=== PATIENT | female | born 1950 | race Caucasian/White ===

== ENCOUNTER 2022-01-06 17:19 | Inpatient (IN) | payer MEDICARE, OTHER ==
[2022-01-06 18:14] LABS: #Monocytes 0.7 10x3/uL (0.0-1.1); #Neutrophils 6.6 10x3/uL (1.5-8.4); %Basophils 0.3 % (0.0-2.0); %Lymphocytes 18.4 % (18.0-47.0); %Monocytes 7.2 % (0.0-10.0); %Neutrophils 73.8 % (40.0-75.0); Hemoglobin 12.2 g/dL (12.0-15.5); Mean Corpuscular HGB CONC 35.1 g/dL (32.0-36.0); Mean Corpuscular Hemoglobin 29.8 pg (27.0-33.0); Mean Corpuscular Volume 84.9 fl (81.6-98.3); Mean Platelet Volume 9.3 fl (7.4-10.4); Platelet Count 302 10x3/uL (150-450); RBC Distribution Width 12.2 % (11.5-14.5)
[2022-01-06 18:20] LABS: ALT (SGPT) 7 U/L (8-55); AST (SGOT) 14 U/L (5-34); Albumin 4.1 g/dL (3.4-4.8); Alkaline Phosphatase 85 U/L (40-110); Anion Gap 15 mmol/L (10-20); BUN (Urea Nitrogen) 21 mg/dL (9.8-20.1); Bilirubin, Total 0.3 mg/dL (0.2-1.2); Calc. Creatinine Clearance 0 mL/min (70-130); Calcium 9.6 mg/dL (7.8-10.44); Carbon Dioxide 23 mmol/L (23-31); Chloride 95 mmol/L (98-107); Estimated GFR 54; Globulin 3.3 g/dL (2.4-3.5); Glucose 188 mg/dL (83-110); Protein, Total 7.4 g/dL (5.8-8.1); Sodium 129 mmol/L (136-145)
[2022-01-06 18:49] LABS: Magnesium 1.8 mg/dL (1.6-2.6)
[2022-01-06] MEDS ORDERED: Acetaminophen 500 MG TAB ONE (19:09)
[2022-01-06] MEDS ORDERED: hydrALAZINE 20 MG/ML VIAL ONE ×2 (19:09→20:53)
[2022-01-06] MEDS ORDERED: Ketorolac Tromethamine 30 MG/ML VIAL ONE (20:07)
[2022-01-06] MEDS ORDERED: Lorazepam 2 MG/ML VIAL ONE (21:56)
[2022-01-06] MEDS ORDERED: HYDROcodone/Acetaminophen 5/325 mg Tablet PO PRN (23:14)
[2022-01-06] MEDS ORDERED: Milk Of Magnesia 30 ML UDCUP PO PRN (23:14)
[2022-01-06 23:45] VITALS: BMI 21.7
[2022-01-06] MEDS ORDERED: Carvedilol 25 MG TAB PO SCH (23:45)
[2022-01-07 00:03] LABS: Magnesium 1.8 mg/dL (1.6-2.6)
[2022-01-07] MEDS: hydrALAZINE 20 MG/ML VIAL SLOW IVP PRN ×3 (03:24→15:56)
[2022-01-07] MEDS ORDERED: traMADol HCl 50 MG TAB PO SCH (04:00)
[2022-01-07 05:38] LABS: #Monocytes 0.8 10x3/uL (0.0-1.1); #Neutrophils 5.9 10x3/uL (1.5-8.4); %Basophils 0.5 % (0.0-2.0); %Lymphocytes 20.6 % (18.0-47.0); %Monocytes 9.2 % (0.0-10.0); %Neutrophils 69.3 % (40.0-75.0); Anion Gap 14 mmol/L (10-20); BUN (Urea Nitrogen) 22 mg/dL (9.8-20.1); Calc. Creatinine Clearance 41 mL/min (70-130); Calcium 9.3 mg/dL (7.8-10.44); Carbon Dioxide 22 mmol/L (23-31); Chloride 97 mmol/L (98-107); Estimated GFR 57; Glucose 84 mg/dL (83-110); Hemoglobin 12.1 g/dL (12.0-15.5); Mean Corpuscular HGB CONC 35.2 g/dL (32.0-36.0); Mean Corpuscular Hemoglobin 29.5 pg (27.0-33.0); Mean Corpuscular Volume 83.9 fl (81.6-98.3); Mean Platelet Volume 9.6 fl (7.4-10.4); Platelet Count 269 10x3/uL (150-450); Potassium 3.4 mmol/L (3.5-5.1); RBC Distribution Width 12.5 % (11.5-14.5); Sodium 130 mmol/L (136-145); White Blood Cell (WBC) Count 8.5 10x3/uL (3.5-10.5)
[2022-01-07] MEDS ORDERED: Morphine 2 MG/ML VIAL SLOW IVP SCH (07:00)
[2022-01-07] MEDS ORDERED: Ondansetron PF 4 MG/2 ML Vial IVP SCH (07:00)
[2022-01-07] MEDS: glipiZIDE 10 MG TAB PO SCH ×2 (08:54→18:48)
[2022-01-07] MEDS: Nitrofurantoin Monohyd/M-Cryst 100 MG CAP PO SCH (08:54)
[2022-01-07] MEDS: Buprenorphine 8mg/Naloxone 2mg per 1 FILM PO SCH ×2 (08:55→20:34)
[2022-01-07] MEDS: ALPRAZolam 0.5 MG TAB PO SCH ×3 (08:55→20:33)
[2022-01-07] MEDS: Carvedilol 25 MG TAB PO SCH ×2 (08:55→18:41)
[2022-01-07] MEDS: Enoxaparin Sodium 40 MG/0.4 ML SYRINGE SC SCH (08:55)
[2022-01-07] MEDS ORDERED: Amlodipine 5 MG TAB PO SCH (09:00)
[2022-01-07] MEDS: Nicotine 21 MG PATCH TD SCH (09:00)
[2022-01-07] MEDS: HYDROcodone/Acetaminophen 5/325 mg Tablet PO PRN (16:19)
[2022-01-07] MEDS ORDERED: Labetalol HCl 100 MG/20 ML VIAL SLOW IVP PRN (17:58)
[2022-01-07] MEDS ORDERED: SUMAtriptan Succinate 6 MG/0.5 ML VIAL SC SCH (18:15)
[2022-01-07] MEDS ORDERED: NIFEdipine XL 60 MG TAB PO SCH (18:15)
[2022-01-07] MEDS ORDERED: Potassium Chloride 20 MEQ TAB PO SCH (18:30)
[2022-01-07] MEDS ORDERED: Lorazepam 2 MG/ML VIAL SLOW IVP SCH (18:30)
[2022-01-07] MEDS ORDERED: niCARdipine 25 MG in Sodium Chloride 0.9% 250 ML 250 ML IVPB SCH (18:30)
[2022-01-07] MEDS: Labetalol HCl 100 MG/20 ML VIAL SLOW IVP PRN (18:42)
[2022-01-07] MEDS: NIFEdipine XL 60 MG TAB PO SCH (20:33)
[2022-01-07] MEDS: Acetaminophen 500 MG TAB PO SCH (20:33)
[2022-01-07] MEDS: Atorvastatin Calcium 40 MG TAB PO SCH (20:34)
[2022-01-08] MEDS: hydrALAZINE 20 MG/ML VIAL SLOW IVP PRN ×2 (02:20→16:46)
[2022-01-08] MEDS: Ondansetron ODT 4 MG TAB PO PRN ×2 (03:09→08:54)
[2022-01-08] MEDS: HYDROcodone/Acetaminophen 5/325 mg Tablet PO PRN (03:09)
[2022-01-08 03:54] LABS: Free T4 (Free Thyroxine) 1.07 ng/dL (0.70-1.48); Thyroid Stimulating Hormone 1.9559 uIU/mL (0.35-4.94)
[2022-01-08] MEDS: Enoxaparin Sodium 40 MG/0.4 ML SYRINGE SC SCH (07:50)
[2022-01-08] MEDS: Buprenorphine 8mg/Naloxone 2mg per 1 FILM PO SCH ×2 (07:50→21:34)
[2022-01-08] MEDS: Carvedilol 25 MG TAB PO SCH ×2 (07:50→16:09)
[2022-01-08] MEDS: ALPRAZolam 0.5 MG TAB PO SCH ×3 (07:50→21:29)
[2022-01-08] MEDS: Nicotine 21 MG PATCH TD SCH (07:51)
[2022-01-08] MEDS: Acetaminophen 500 MG TAB PO SCH ×3 (07:55→21:28)
[2022-01-08 09:03] LABS: #Monocytes 0.7 10x3/uL (0.0-1.1); #Neutrophils 8.7 10x3/uL (1.5-8.4); %Basophils 0.3 % (0.0-2.0); %Lymphocytes 14.3 % (18.0-47.0); %Neutrophils 78.9 % (40.0-75.0); Anion Gap 17 mmol/L (10-20); BUN (Urea Nitrogen) 18 mg/dL (9.8-20.1); Calc. Creatinine Clearance 44 mL/min (70-130); Calcium 9.1 mg/dL (7.8-10.44); Carbon Dioxide 23 mmol/L (23-31); Chloride 96 mmol/L (98-107); Estimated GFR 62; Glucose 190 mg/dL (83-110); Hemoglobin 13.3 g/dL (12.0-15.5); Mean Corpuscular HGB CONC 34.7 g/dL (32.0-36.0); Mean Corpuscular Hemoglobin 29.8 pg (27.0-33.0); Mean Corpuscular Volume 85.7 fl (81.6-98.3); Mean Platelet Volume 9.1 fl (7.4-10.4); Platelet Count 322 10x3/uL (150-450); Potassium 4.4 mmol/L (3.5-5.1); RBC Distribution Width 12.7 % (11.5-14.5); Red Blood Cell (RBC) Count 4.47 10x6/uL (3.90-5.03); Sodium 132 mmol/L (136-145)
[2022-01-08] MEDS: Nitrofurantoin Monohyd/M-Cryst 100 MG CAP PO SCH (09:07)
[2022-01-08] MEDS: NIFEdipine XL 60 MG TAB PO SCH ×2 (09:08→21:29)
[2022-01-08] MEDS: glipiZIDE 10 MG TAB PO SCH ×2 (09:09→16:20)
[2022-01-08] MEDS ORDERED: Lorazepam 2 MG/ML VIAL SLOW IVP SCH (11:45)
[2022-01-08] MEDS ORDERED: Gadobenate Dimeglumine 529 MG/1 ML (20ML VIAL) ONE (12:33)
[2022-01-08] MEDS: Atorvastatin Calcium 40 MG TAB PO SCH (21:29)
[2022-01-08 23:07] LABS: Bilirubin Neg (Negative); Blood, Urine 10 (Negative); Clarity Slightly Cloudy (Clear); Glucose, Urine (Dipstick) Normal (Negative); Ketone, Urine 5 mg/dL (Negative); Leukocyte 25 (Negative); Nitrite Negative (Negative); Protein, Urine (Dipstick) 30 mg/dl (Neg-Trace); Urobilinogen Normal mg/dL (Less than 2)
[2022-01-08 23:25] LABS: Amphetamine Not Detected (NotDetected); Barbiturates Screen Not Detected (NotDetected); Benzodiazepine Screen Detected (NotDetected); Cocaine Metabolite Screen Not Detected (NotDetected); Methadone Not Detected (NotDetected); Methamphetamine Not Detected (NotDetected); Opiate Screen Detected (NotDetected); Oxycodone Screen Not Detected (NotDetected); Phencyclidine (PCP) Not Detected (NotDetected); THC/Cannabinoid Screen Not Detected (NotDetected); Tricyclic Screen Not Detected (NotDetected)
[2022-01-08 23:26] LABS: Bacteria/HPF Rare-Few HPF (None Seen); RBC/HPF 0-3 HPF (0-3); Squamous Epithelial 0-3 HPF (0-3); WBC/HPF 0-3 HPF (0-3)
[2022-01-08] MEDS ORDERED: Sodium Chloride 0.9% 1,000 ML IV SCH (23:59)
[2022-01-09 05:15] LABS: Anion Gap 16 mmol/L (10-20); BUN (Urea Nitrogen) 16 mg/dL (9.8-20.1); Calc. Creatinine Clearance 50 mL/min (70-130); Calcium 8.9 mg/dL (7.8-10.44); Carbon Dioxide 24 mmol/L (23-31); Chloride 98 mmol/L (98-107); Estimated GFR 73; Glucose 185 mg/dL (83-110); Potassium 4.1 mmol/L (3.5-5.1); Sodium 134 mmol/L (136-145)
[2022-01-09 05:24] LABS: #Neutrophils 8.7 10x3/uL (1.5-8.4); %Basophils 0.2 % (0.0-2.0); %Lymphocytes 14.8 % (18.0-47.0); %Monocytes 8.4 % (0.0-10.0); %Neutrophils 76.1 % (40.0-75.0); Mean Corpuscular HGB CONC 34.5 g/dL (32.0-36.0); Mean Corpuscular Hemoglobin 29.7 pg (27.0-33.0); Mean Corpuscular Volume 86.1 fl (81.6-98.3); Platelet Count 287 10x3/uL (150-450); RBC Distribution Width 12.7 % (11.5-14.5); Red Blood Cell (RBC) Count 4.38 10x6/uL (3.90-5.03); White Blood Cell (WBC) Count 11.4 10x3/uL (3.5-10.5)
[2022-01-09] MEDS: Labetalol HCl 100 MG/20 ML VIAL SLOW IVP PRN (05:24)
[2022-01-09] MEDS: glipiZIDE 10 MG TAB PO SCH ×2 (08:15→16:40)
[2022-01-09] MEDS: Acetaminophen 500 MG TAB PO SCH ×2 (09:00→15:13)
[2022-01-09] MEDS: NIFEdipine XL 60 MG TAB PO SCH (09:00)
[2022-01-09] MEDS: Carvedilol 25 MG TAB PO SCH ×2 (09:01→17:30)
[2022-01-09] MEDS: ALPRAZolam 0.5 MG TAB PO SCH ×2 (09:01→15:14)
[2022-01-09] MEDS: Buprenorphine 8mg/Naloxone 2mg per 1 FILM PO SCH (09:01)
[2022-01-09] MEDS: Enoxaparin Sodium 40 MG/0.4 ML SYRINGE SC SCH (09:02)
[2022-01-09] MEDS: Nicotine 21 MG PATCH TD SCH (10:14)
[2022-01-09] MEDS: Nitrofurantoin Monohyd/M-Cryst 100 MG CAP PO SCH (10:15)
[2022-01-09] MEDS ORDERED: Lisinopril 20 MG TAB PO SCH (16:00)
[2022-01-09] MEDS ORDERED: Hydrochlorothiazide 25 MG TAB PO SCH (16:00)
[2022-01-09] MEDS ORDERED: Lisinopril 10 MG TAB PO SCH ×2 (16:30→21:00)
[2022-01-09] MEDS ORDERED: cloNIDine 0.1 MG TAB PO SCH ×2 (17:00→21:00)
[2022-01-09 17:43] VITALS: TEMP 99
[2022-01-09 18:17] VITALS: BP 166/73
[2022-01-10] MEDS ORDERED: Lisinopril 20 MG TAB PO SCH (09:00)
[2022-01-10] MEDS ORDERED: Hydrochlorothiazide 25 MG TAB PO SCH (09:00)
== END 2022-01-09 18:55 | disposition home or self-care (01) | DRG 683 ==
LOC: CSHERS 17:19 → CSHTELE 23:22 → OBSVTOIN 01-07 18:28 → CSHIMCU 01-07 19:46 → CSHTELE 01-08 18:37
PROVIDERS: ADMIT Family Medicine; ATTEND Hospitalist
DX: I12.9 Hypertensive chronic kidney disease with stage 1 through stage 4 chronic kidney disease, or unspecified chronic kidney disease (principal); E87.1 Hypo-osmolality and hyponatremia; N39.0 Urinary tract infection, site not specified; Z20.822 Contact with and (suspected) exposure to COVID-19; J44.9 Chronic obstructive pulmonary disease, unspecified; F17.210 Nicotine dependence, cigarettes, uncomplicated; G89.4 Chronic pain syndrome; H35.30 Unspecified macular degeneration; H54.8 Legal blindness, as defined in USA; E78.5 Hyperlipidemia, unspecified; K59.00 Constipation, unspecified; N18.30 Chronic kidney disease, stage 3 unspecified; E11.22 Type 2 diabetes mellitus with diabetic chronic kidney disease; F41.9 Anxiety disorder, unspecified; F32.A Depression, unspecified; M54.9 Dorsalgia, unspecified; E78.00 Pure hypercholesterolemia, unspecified; Z79.899 Other long term (current) drug therapy; Z98.1 Arthrodesis status; Z79.84 Long term (current) use of oral hypoglycemic drugs; Z71.6 Tobacco abuse counseling; Z86.73 Personal history of transient ischemic attack (TIA), and cerebral infarction without residual deficits; Z98.51 Tubal ligation status; Z90.49 Acquired absence of other specified parts of digestive tract; Z82.49 Family history of ischemic heart disease and other diseases of the circulatory system
CPT/HCPCS: 36415; 36416; 70450; 70553; 71045; 76770; 80048; 80053; 80306; 81001; 82088; 82533; 83735; 83880; 83935; 84244; 84300; 84439; 84443; 84484; 85025; 93005; 94640; 96372; 96374; 96375; 96376; A9577; G0378; J0360; J1650; J1885; J2060; J2270; J2405; J3030; J7050; J7620; Q0162; U0003; U0005

== ENCOUNTER 2022-05-05 19:42 | Inpatient (IN) | payer MEDICARE, OTHER ==
[~2022-05-05 19:42] MED LIST: Iopamidol 370 76% 100 ML VIAL ONE; PROPOFOL 200 MG/20 ML VIAL ONE; Succinylcholine 200 MG/10 ml SYRINGE FS ONE
[2022-05-05 20:24] LABS: Hemoglobin 12.6 g/dL (12.0-15.5); Mean Corpuscular HGB CONC 33.5 g/dL (32.0-36.0); Mean Corpuscular Hemoglobin 29.2 pg (27.0-33.0); Mean Corpuscular Volume 87.2 fl (81.6-98.3); Mean Platelet Volume 9.5 fl (7.4-10.4); RBC Distribution Width 13.3 % (11.5-14.5); Red Blood Cell (RBC) Count 4.31 10x6/uL (3.90-5.03); White Blood Cell (WBC) Count 13.5 10x3/uL (3.5-10.5)
[2022-05-05 20:27] LABS: Platelet Count 402 10x3/uL (150-450)
[2022-05-05 20:28] LABS: MDiff Complete? YES
[2022-05-05] MEDS ORDERED: Ondansetron PF 4 MG/2 ML Vial ONE (20:35)
[2022-05-05] MEDS ORDERED: methylPREDNISolone Sod Succ/PF 125 MG/2 ML VIAL ONE (20:35)
[2022-05-05] MEDS ORDERED: Nitroglycerin 2% Ointment 1 INCH/1 GM Packet ONE (20:35)
[2022-05-05 20:36] LABS: Bilirubin Neg (Negative); Blood, Urine 25 (Negative); Clarity Slightly Cloudy (Clear); Glucose, Urine (Dipstick) >=1000 mg/dL (Negative); Ketone, Urine Negative (Negative); Leukocyte 25 (Negative); Nitrite Negative (Negative); Protein, Urine (Dipstick) 30 mg/dl (Neg-Trace); Specific Gravity, Urine 1.015 (1.005-1.030); Urobilinogen Normal mg/dL (Less than 2)
[2022-05-05] MEDS ORDERED: Cefepime 2 GM VIAL ONE (20:36)
[2022-05-05] MEDS ORDERED: Vancomycin 1 GM VIAL ONE (20:36)
[2022-05-05 20:39] LABS: ALT (SGPT) 11 U/L (8-55); AST (SGOT) 19 U/L (5-34); Albumin 3.6 g/dL (3.4-4.8); Alkaline Phosphatase 123 U/L (40-110); Anion Gap 20 mmol/L (10-20); BUN (Urea Nitrogen) 33 mg/dL (9.8-20.1); Bilirubin, Total 0.4 mg/dL (0.2-1.2); Calc. Creatinine Clearance 0 mL/min (70-130); Calcium 9.9 mg/dL (7.8-10.44); Carbon Dioxide 20 mmol/L (23-31); Chloride 100 mmol/L (98-107); Estimated GFR 41; Globulin 4.3 g/dL (2.4-3.5); Glucose 233 mg/dL (83-110); Protein, Total 7.9 g/dL (5.8-8.1); Sodium 137 mmol/L (136-145)
[2022-05-05 20:46] LABS: Bacteria/HPF 3+ HPF (None Seen); Squamous Epithelial 0-3 HPF (0-3)
[2022-05-05] MEDS ORDERED: Albuterol Sulfate 2.5 mg/3 ml Neb ONE (20:46)
[2022-05-05 20:48] LABS: Band 18 % (5-11); Lymphocytes 9 % (21-51); Monocytes 10 % (0-10); Neutrophil 62 % (42-75); Platelet Morphology Comment Appears Adequate; Reactive Lymphocytes 1 % (0-10)
[2022-05-05 20:51] LABS: SARS-CoV-2 NAA Rapid Test Not Detected (NotDetected)
[2022-05-05 20:56] LABS: Lipase Less than 4 U/L (8-78)
[2022-05-05 21:00] LABS: CKMB 2.9 ng/mL (0-6.6)
[2022-05-05] MEDS ORDERED: Potassium Bicarbonate/Cit Ac 25 MEQ TAB ONE (21:32)
[2022-05-05] MEDS ORDERED: hydrALAZINE 20 MG/ML VIAL ONE (21:49)
[2022-05-05] MEDS ORDERED: Morphine 4 MG/ML VIAL ONE (21:49)
[2022-05-05] MEDS ORDERED: Nitroglycerin 0.4 MG TAB (25 Tab Bottle) SL PRN (22:12)
[2022-05-05] MEDS ORDERED: cloNIDine 0.1 MG TAB PO PRN (22:12)
[2022-05-05] MEDS ORDERED: Benzonatate 100 MG CAP PO PRN (22:12)
[2022-05-05] MEDS ORDERED: Ondansetron ODT 4 MG TAB PO PRN (22:12)
[2022-05-05] MEDS ORDERED: GUAIFENESIN SF SOLN 200 MG/10 ML UDCUP PO PRN (22:12)
[2022-05-05] MEDS ORDERED: Labetalol HCl 100 MG/20 ML VIAL SLOW IVP PRN (22:12)
[2022-05-05] MEDS ORDERED: Ondansetron PF 4 MG/2 ML Vial IVP PRN (22:12)
[2022-05-05] MEDS ORDERED: Acetaminophen 325 MG TAB PO PRN (22:12)
[2022-05-05] MEDS ORDERED: Dextrose 5% in Water 1,000 ML IV PRN (22:16)
[2022-05-05] MEDS ORDERED: Lisinopril 10 MG TAB PO SCH (22:30)
[2022-05-05] MEDS ORDERED: cloNIDine 0.2 MG TAB PO SCH (22:30)
[2022-05-05] MEDS ORDERED: Carvedilol 25 MG TAB PO SCH (22:30)
[2022-05-05] MEDS ORDERED: Potassium Chloride 10 MEQ in Premix Bag 1 BAG IVPB SCH (22:45)
[2022-05-05] MEDS ORDERED: Nitroglycerin 50 MG/250 ML BOT 250 ML IVPB SCH (23:15)
[2022-05-05] MEDS ORDERED: Nitroglycerin 50 MG/250 ML BOT 250 ML ONE (23:36)
[2022-05-05] MEDS ORDERED: HYDROcodone/Acetaminophen 5/325 mg Tablet ONE (23:59)
[2022-05-06] MEDS: HYDROcodone/Acetaminophen 5/325 mg Tablet PO PRN ×2 (00:02→09:53)
[2022-05-06] MEDS ORDERED: cloNIDine 0.1 MG TAB PO SCH (01:15)
[2022-05-06 04:09] LABS: Hemoglobin 9.8 g/dL (12.0-15.5); Mean Corpuscular HGB CONC 33.6 g/dL (32.0-36.0); Mean Corpuscular Hemoglobin 29.3 pg (27.0-33.0); Mean Corpuscular Volume 87.4 fl (81.6-98.3); Mean Platelet Volume 9.6 fl (7.4-10.4); Platelet Count 343 10x3/uL (150-450); RBC Distribution Width 13.4 % (11.5-14.5); Red Blood Cell (RBC) Count 3.34 10x6/uL (3.90-5.03); White Blood Cell (WBC) Count 8.9 10x3/uL (3.5-10.5)
[2022-05-06 04:13] LABS: MDiff Complete? YES
[2022-05-06 04:26] LABS: ALT (SGPT) 10 U/L (8-55); AST (SGOT) 15 U/L (5-34); Albumin 2.7 g/dL (3.4-4.8); Alkaline Phosphatase 139 U/L (40-110); Anion Gap 16 mmol/L (10-20); BUN (Urea Nitrogen) 37 mg/dL (9.8-20.1); Bilirubin, Total 0.3 mg/dL (0.2-1.2); Calc. Creatinine Clearance 36 mL/min (70-130); Calcium 8.3 mg/dL (7.8-10.44); Carbon Dioxide 18 mmol/L (23-31); Chloride 107 mmol/L (98-107); Estimated GFR 52; Globulin 3.2 g/dL (2.4-3.5); Glucose 273 mg/dL (83-110); Potassium 4.4 mmol/L (3.5-5.1); Protein, Total 5.9 g/dL (5.8-8.1); Sodium 137 mmol/L (136-145)
[2022-05-06 04:53] LABS: Band 15 % (5-11); Lymphocytes 5 % (21-51); Monocytes 7 % (0-10); Neutrophil 73 % (42-75)
[2022-05-06 04:58] LABS: Anisocytosis SLIGHT = 6-15 cells (100X) (0-5/hpf); Hypochromia SLIGHT = 6-15 cells (100X) (0-5/hpf); Macrocytosis SLIGHT = 6-15 cells (100X) (0-5/hpf)
[2022-05-06 04:59] LABS: Platelet Morphology Comment Appears Adequate
[2022-05-06] MEDS ORDERED: FLU VACC QS2022-23(65YR UP)/PF 240 MCG/0.7 ML SYRINGE IM ONE (09:00)
[2022-05-06 09:35] LABS: Troponin I 0.036 ng/mL (< 0.028)
[2022-05-06] MEDS: Cefepime 2 GM in Sodium Chloride 0.9% 100 ML IVPB SCH ×2 (09:50→21:03)
[2022-05-06] MEDS: Lisinopril 10 MG TAB PO SCH ×2 (09:51→21:04)
[2022-05-06] MEDS: cloNIDine 0.1 MG TAB PO SCH ×3 (09:52→21:02)
[2022-05-06] MEDS: Carvedilol 25 MG TAB PO SCH ×2 (09:53→21:02)
[2022-05-06] MEDS: Lantus 1000 UNITS/10 ML VIAL SC SCH (09:54)
[2022-05-06] MEDS: ALPRAZolam 0.5 MG TAB PO SCH ×3 (09:54→21:01)
[2022-05-06] MEDS: Enoxaparin Sodium 40 MG/0.4 ML SYRINGE SC SCH (09:57)
[2022-05-06] MEDS: NIFEdipine XL 60 MG TAB PO SCH ×2 (10:11→21:03)
[2022-05-06] MEDS: glipiZIDE 10 MG TAB PO SCH ×2 (10:11→17:35)
[2022-05-06 16:42] LABS: Actual Bicarbonate (HCO3a) 20.9 mEq/L (22-28); CO2 Tension 41.5 mmHg (35.0-45.0); O2 Tension (PaO2), arterial 54.4 mmHg (> 70.0); pH, Arterial 7.32 (7.35-7.45)
[2022-05-06 16:43] LABS: Calcium, Ionized (arterial) 1.22 mmol/L (1.12-1.30); Carboxyhemoglobin (COHb) 0.9 gm% (0.0-3.0); Hemoglobin (Hb) 12.5 g/dL (12.0-16.0); Potassium - ABG Lab 3.2 mmol/L (3.70-5.30)
[2022-05-06 16:44] LABS: ALV-art Gradient 178.925 mmHg (0-20); Puncture Site RRA
[2022-05-06] MEDS ORDERED: Vancomycin HCl 1 GM in Sodium Chloride 0.9% 250 ML 250 ML IVPB SCH (21:00)
[2022-05-06] MEDS ORDERED: Vancomycin HCl 750 MG in Sodium Chloride 0.9% 250 ML 250 ML IVPB SCH (21:00)
[2022-05-06] MEDS: Atorvastatin Calcium 40 MG TAB PO SCH (21:02)
[2022-05-06] MEDS: guaiFENesin ER 600 MG TAB PO SCH (21:03)
[2022-05-06] MEDS: HumaLOG 300 UNITS/3 ML VIAL SC PRN (21:17)
[2022-05-07 04:53] LABS: Anion Gap 12 mmol/L (10-20); BUN (Urea Nitrogen) 58 mg/dL (9.8-20.1); Calc. Creatinine Clearance 33 mL/min (70-130); Calcium 8.8 mg/dL (7.8-10.44); Carbon Dioxide 20 mmol/L (23-31); Chloride 109 mmol/L (98-107); Estimated GFR 46; Glucose 267 mg/dL (83-110); Magnesium 2.3 mg/dL (1.6-2.6); Potassium 3.9 mmol/L (3.5-5.1); Sodium 137 mmol/L (136-145)
[2022-05-07 06:04] LABS: #Neutrophils 16.1 10x3/uL (1.5-8.4); %Basophils 0.2 % (0.0-2.0); %Lymphocytes 6.3 % (18.0-47.0); %Monocytes 5.2 % (0.0-10.0); %Neutrophils 86.9 % (40.0-75.0); Hemoglobin 9.6 g/dL (12.0-15.5); Mean Corpuscular Hemoglobin 29.4 pg (27.0-33.0); Mean Corpuscular Volume 86.5 fl (81.6-98.3); Mean Platelet Volume 9.8 fl (7.4-10.4); Platelet Count 365 10x3/uL (150-450); RBC Distribution Width 13.6 % (11.5-14.5); Red Blood Cell (RBC) Count 3.26 10x6/uL (3.90-5.03); White Blood Cell (WBC) Count 18.5 10x3/uL (3.5-10.5)
[2022-05-07] MEDS: HumaLOG 300 UNITS/3 ML VIAL SC PRN (06:26)
[2022-05-07] MEDS: Carvedilol 25 MG TAB PO SCH ×2 (09:21→22:00)
[2022-05-07] MEDS: guaiFENesin ER 600 MG TAB PO SCH ×2 (09:21→22:10)
[2022-05-07] MEDS: glipiZIDE 10 MG TAB PO SCH ×2 (09:21→16:29)
[2022-05-07] MEDS: Lisinopril 10 MG TAB PO SCH ×2 (09:21→22:00)
[2022-05-07] MEDS: cloNIDine 0.1 MG TAB PO SCH ×3 (09:21→21:45)
[2022-05-07] MEDS: NIFEdipine XL 60 MG TAB PO SCH ×2 (09:21→22:06)
[2022-05-07] MEDS: Lantus 1000 UNITS/10 ML VIAL SC SCH (09:22)
[2022-05-07] MEDS: Cefepime 2 GM in Sodium Chloride 0.9% 100 ML IVPB SCH ×2 (09:22→22:27)
[2022-05-07] MEDS: Enoxaparin Sodium 40 MG/0.4 ML SYRINGE SC SCH (09:22)
[2022-05-07] MEDS: ALPRAZolam 0.5 MG TAB PO SCH ×3 (09:22→22:09)
[2022-05-07] MEDS ORDERED: Vancomycin HCl 750 MG in Sodium Chloride 0.9% 250 ML 250 ML IVPB SCH (21:00)
[2022-05-07] MEDS: Atorvastatin Calcium 40 MG TAB PO SCH (22:10)
[2022-05-08 04:53] LABS: Anion Gap 14 mmol/L (10-20); BUN (Urea Nitrogen) 56 mg/dL (9.8-20.1); CRP (Inflammatory) 7.03 mg/dL (= or < 0.5); Calc. Creatinine Clearance 43 mL/min (70-130); Carbon Dioxide 20 mmol/L (23-31); Chloride 111 mmol/L (98-107); Estimated GFR 65; Glucose 258 mg/dL (83-110); Potassium 3.7 mmol/L (3.5-5.1); Sodium 141 mmol/L (136-145)
[2022-05-08 04:55] LABS: #Monocytes 1.2 10x3/uL (0.0-1.1); #Neutrophils 17.1 10x3/uL (1.5-8.4); %Basophils 0.2 % (0.0-2.0); %Neutrophils 87.9 % (40.0-75.0); Hemoglobin 10.7 g/dL (12.0-15.5); Mean Corpuscular HGB CONC 34.3 g/dL (32.0-36.0); Mean Corpuscular Hemoglobin 29.7 pg (27.0-33.0); Mean Corpuscular Volume 86.7 fl (81.6-98.3); Mean Platelet Volume 9.4 fl (7.4-10.4); Platelet Count 331 10x3/uL (150-450); RBC Distribution Width 13.6 % (11.5-14.5); White Blood Cell (WBC) Count 19.4 10x3/uL (3.5-10.5)
[2022-05-08] MEDS: HumaLOG 300 UNITS/3 ML VIAL SC PRN (06:26)
[2022-05-08] MEDS: ALPRAZolam 0.5 MG TAB PO SCH ×3 (12:41→21:30)
[2022-05-08] MEDS: Cefepime 2 GM in Sodium Chloride 0.9% 100 ML IVPB SCH ×2 (12:41→21:40)
[2022-05-08] MEDS: glipiZIDE 10 MG TAB PO SCH (12:41)
[2022-05-08] MEDS: Carvedilol 25 MG TAB PO SCH ×2 (12:41→21:42)
[2022-05-08] MEDS: cloNIDine 0.1 MG TAB PO SCH ×3 (12:42→21:42)
[2022-05-08] MEDS: Lisinopril 10 MG TAB PO SCH (12:43)
[2022-05-08] MEDS: Lantus 1000 UNITS/10 ML VIAL SC SCH (12:43)
[2022-05-08] MEDS: NIFEdipine XL 60 MG TAB PO SCH (12:43)
[2022-05-08] MEDS: Enoxaparin Sodium 40 MG/0.4 ML SYRINGE SC SCH (12:43)
[2022-05-08] MEDS: guaiFENesin ER 600 MG TAB PO SCH (12:43)
[2022-05-08] MEDS: Oxacillin 2 GM in Sodium Chloride 0.9% 100 ML IVPB SCH ×2 (13:00→18:57)
[2022-05-08] MEDS: Atorvastatin Calcium 40 MG TAB PO SCH (21:41)
[2022-05-09] MEDS: Oxacillin 2 GM in Sodium Chloride 0.9% 100 ML IVPB SCH ×4 (01:43→17:54)
[2022-05-09] MEDS: guaiFENesin ER 600 MG TAB PO SCH ×4 (01:49→20:51)
[2022-05-09] MEDS: Lisinopril 10 MG TAB PO SCH ×4 (01:49→20:52)
[2022-05-09] MEDS: NIFEdipine XL 60 MG TAB PO SCH ×2 (01:50→08:55)
[2022-05-09] MEDS: HumaLOG 300 UNITS/3 ML VIAL SC PRN ×2 (07:19→16:54)
[2022-05-09] MEDS: Enoxaparin Sodium 40 MG/0.4 ML SYRINGE SC SCH (08:54)
[2022-05-09] MEDS: ALPRAZolam 0.5 MG TAB PO SCH (08:55)
[2022-05-09] MEDS: glipiZIDE 10 MG TAB PO SCH ×3 (08:55→16:49)
[2022-05-09] MEDS: cloNIDine 0.1 MG TAB PO SCH (08:57)
[2022-05-09] MEDS: Carvedilol 25 MG TAB PO SCH (08:57)
[2022-05-09] MEDS: Cefepime 2 GM in Sodium Chloride 0.9% 100 ML IVPB SCH (08:58)
[2022-05-09] MEDS: Lantus 1000 UNITS/10 ML VIAL SC SCH (09:24)
[2022-05-09 10:11] LABS: Hemoglobin 8.4 g/dL (12.0-15.5); Mean Corpuscular HGB CONC 33.5 g/dL (32.0-36.0); Mean Corpuscular Hemoglobin 29.4 pg (27.0-33.0); Mean Corpuscular Volume 87.8 fl (81.6-98.3); Mean Platelet Volume 9.7 fl (7.4-10.4); Platelet Count 376 10x3/uL (150-450); RBC Distribution Width 13.5 % (11.5-14.5); Red Blood Cell (RBC) Count 2.86 10x6/uL (3.90-5.03)
[2022-05-09] MEDS ORDERED: EPINEPHrine 1 MG/10 ML Abboject SYRINGE ONE (10:19)
[2022-05-09] MEDS ORDERED: FENTANYL 500 MCG/10 ML VIAL 2,000 MCG in Sodium Chloride 0.9% 60 ML IV PRN (10:31)
[2022-05-09 10:32] LABS: MDiff Complete? YES
[2022-05-09 10:35] LABS: Band 8 % (5-11); Lymphocytes 6 % (21-51); Monocytes 3 % (0-10); Neutrophil 83 % (42-75)
[2022-05-09 10:36] LABS: Ovalocytes SLIGHT = 2-5 cells (100X) (0-1/hpf)
[2022-05-09 10:37] LABS: Platelet Morphology Comment Appears Adequate
[2022-05-09] MEDS ORDERED: NOREPINEPHRINE 8 MG/250 ML-D5W 250 ML ONE (10:54)
[2022-05-09] MEDS ORDERED: Octreotide Acetate 1,250 MCG in Sodium Chloride 0.9% 250 ML 250 ML IVPB SCH (11:00)
[2022-05-09 11:05] LABS: CKMB 0.9 ng/mL (0-6.6)
[2022-05-09] MEDS ORDERED: Ventilator Sedation Protocol 1 EACH FS PRN (11:14)
[2022-05-09] MEDS ORDERED: Propofol 1,000 MG/100 ML VIAL IV ONE (11:15)
[2022-05-09] MEDS ORDERED: NOREPINEPHRINE 8 MG/250 ML-D5W 250 ML IVPB PRN (11:20)
[2022-05-09] MEDS: Propofol 1,000 MG/100 ML VIAL IV PRN ×2 (11:21→21:16)
[2022-05-09] MEDS ORDERED: Iopamidol 370 76% 100 ML VIAL ONE (11:23)
[2022-05-09 11:24] LABS: Base Excess (BEa) -4.8 mEq/L (-2.0 to +3.0); CO2 Tension 41.9 mmHg (35.0-45.0); Calcium, Ionized (arterial) 1.23 mmol/L (1.12-1.30); Carboxyhemoglobin (COHb) 0.3 gm% (0.0-3.0); Hemoglobin (Hb) 9.7 g/dL (12.0-16.0); O2 Tension (PaO2), arterial 55.2 mmHg (> 70.0); Potassium - ABG Lab 3.5 mmol/L (3.70-5.30); Puncture Site LBA; pH, Arterial 7.32 (7.35-7.45)
[2022-05-09 11:28] LABS: ALV-art Gradient 213.275 mmHg (0-20)
[2022-05-09] MEDS ORDERED: Ventilator Sedation Protocol 1 EACH FS SCH (11:30)
[2022-05-09] MEDS ORDERED: Fentanyl BOLUS 250 ML IVPB PRN (11:30)
[2022-05-09] MEDS ORDERED: Meropenem 1 GM in Sodium Chloride 0.9% 100 ML IVPB SCH (11:30)
[2022-05-09] MEDS ORDERED: DISCONTINUE PREVIOUS NARCOTIC PAIN MEDICATIONS AND BENZODIAZEPINES FS SCH (11:30)
[2022-05-09] MEDS ORDERED: Morphine 2 MG/ML VIAL SLOW IVP PRN (11:30)
[2022-05-09] MEDS ORDERED: Propofol BOLUS 1,000 MG/100 ML VIAL IV PRN (11:30)
[2022-05-09] MEDS: Sodium Chloride 0.9% 1,000 ML IV SCH (11:32)
[2022-05-09 11:34] LABS: Phosphorus 2.6 mg/dL (2.3-4.7)
[2022-05-09] MEDS: Pantoprazole 80 MG in Sodium Chloride 0.9% 100 ML IVPB SCH ×2 (11:53→20:32)
[2022-05-09] MEDS: Lactated Ringer's 1,000 ML IV SCH ×2 (13:45→14:30)
[2022-05-09] MEDS ORDERED: Meropenem 500 MG in Sodium Chloride 0.9% 100 ML IVPB SCH (14:00)
[2022-05-09] MEDS: Hydrocortisone Sod Succ/PF 100 mg/2 ml Vial IVP SCH ×2 (14:29→20:35)
[2022-05-09 15:27] LABS: Troponin I 0.019 ng/mL (< 0.028)
[2022-05-09] MEDS: Meropenem 1 GM in Sodium Chloride 0.9% 100 ML IVPB SCH (20:32)
[2022-05-09] MEDS: Atorvastatin Calcium 40 MG TAB PO SCH ×2 (20:36→20:52)
[2022-05-10] MEDS: Oxacillin 2 GM in Sodium Chloride 0.9% 100 ML IVPB SCH ×5 (00:26→23:35)
[2022-05-10] MEDS: Sodium Chloride 0.9% 1,000 ML IV SCH (00:26)
[2022-05-10] MEDS: Hydrocortisone Sod Succ/PF 100 mg/2 ml Vial IVP SCH ×3 (02:17→20:35)
[2022-05-10] MEDS: Propofol 1,000 MG/100 ML VIAL IV PRN ×4 (03:50→20:33)
[2022-05-10 04:10] LABS: Actual Bicarbonate (HCO3a) 22.5 mEq/L (22-28); Base Excess (BEa) -2.3 mEq/L (-2.0 to +3.0); CO2 Tension 38.8 mmHg (35.0-45.0); Calcium, Ionized (arterial) 1.14 mmol/L (1.12-1.30); Carboxyhemoglobin (COHb) 0.3 gm% (0.0-3.0); Critical Notified By: CP.PH; Hemoglobin (Hb) 8.9 g/dL (12.0-16.0); O2 Tension (PaO2), arterial 68.6 mmHg (> 70.0); Potassium - ABG Lab 2.9 mmol/L (3.70-5.30); Puncture Site LRA; RapidComm Collect By CP.PH; pH, Arterial 7.38 (7.35-7.45)
[2022-05-10 04:13] LABS: Hemoglobin 7.2 g/dL (12.0-15.5); Mean Corpuscular HGB CONC 33.6 g/dL (32.0-36.0); Mean Corpuscular Hemoglobin 29.8 pg (27.0-33.0); Mean Corpuscular Volume 88.4 fl (81.6-98.3); Mean Platelet Volume 9.8 fl (7.4-10.4); Platelet Count 242 10x3/uL (150-450); RBC Distribution Width 13.8 % (11.5-14.5); Red Blood Cell (RBC) Count 2.42 10x6/uL (3.90-5.03)
[2022-05-10 04:28] LABS: Troponin I 0.011 ng/mL (< 0.028)
[2022-05-10 04:40] LABS: MDiff Complete? YES
[2022-05-10 04:43] LABS: Band 9 % (5-11); Lymphocytes 2 % (21-51); Monocytes 1 % (0-10); Neutrophil 88 % (42-75)
[2022-05-10 04:44] LABS: Platelet Morphology Comment Appears Adequate; RBC Morphology Normal
[2022-05-10 04:59] LABS: Anion Gap 11 mmol/L (10-20); BUN (Urea Nitrogen) 60 mg/dL (9.8-20.1); Calc. Creatinine Clearance 46 mL/min (70-130); Carbon Dioxide 20 mmol/L (23-31); Chloride 122 mmol/L (98-107); Estimated GFR 70; Glucose 169 mg/dL (83-110); Sodium 150 mmol/L (136-145)
[2022-05-10] MEDS: Pantoprazole 80 MG in Sodium Chloride 0.9% 100 ML IVPB SCH ×2 (07:13→16:59)
[2022-05-10] MEDS: glipiZIDE 10 MG TAB PO SCH ×2 (07:18→15:41)
[2022-05-10] MEDS: guaiFENesin ER 600 MG TAB PO SCH ×2 (07:22→20:35)
[2022-05-10] MEDS: Lantus 1000 UNITS/10 ML VIAL SC SCH (07:40)
[2022-05-10] MEDS: Meropenem 1 GM in Sodium Chloride 0.9% 100 ML IVPB SCH ×2 (07:41→20:36)
[2022-05-10] MEDS: Lisinopril 10 MG TAB PO SCH ×2 (07:42→20:35)
[2022-05-10 08:21] LABS: Hemoglobin 7.3 g/dL (12.0-15.5); Mean Corpuscular HGB CONC 34.1 g/dL (32.0-36.0); Mean Corpuscular Hemoglobin 30.2 pg (27.0-33.0); Mean Corpuscular Volume 88.4 fl (81.6-98.3); Mean Platelet Volume 9.7 fl (7.4-10.4); Platelet Count 250 10x3/uL (150-450); RBC Distribution Width 13.9 % (11.5-14.5); Red Blood Cell (RBC) Count 2.42 10x6/uL (3.90-5.03); White Blood Cell (WBC) Count 23.9 10x3/uL (3.5-10.5)
[2022-05-10 08:22] LABS: MDiff Complete? YES
[2022-05-10] MEDS ORDERED: Electrolyte Replacement Protocol 1 EACH FS SCH (08:30)
[2022-05-10 08:32] LABS: ALT (SGPT) 7 U/L (8-55); AST (SGOT) 13 U/L (5-34); Albumin 2.3 g/dL (3.4-4.8); Alkaline Phosphatase 80 U/L (40-110); Anion Gap 12 mmol/L (10-20); BUN (Urea Nitrogen) 57 mg/dL (9.8-20.1); Bilirubin, Total 0.2 mg/dL (0.2-1.2); Calc. Creatinine Clearance 47 mL/min (70-130); Calcium 7.9 mg/dL (7.8-10.44); Carbon Dioxide 20 mmol/L (23-31); Chloride 121 mmol/L (98-107); Estimated GFR 68; Globulin 2.9 g/dL (2.4-3.5); Glucose 170 mg/dL (83-110); Potassium 2.8 mmol/L (3.5-5.1); Protein, Total 5.2 g/dL (5.8-8.1); Sodium 150 mmol/L (136-145)
[2022-05-10 08:37] LABS: Band 11 % (5-11); Lymphocytes 8 % (21-51); Monocytes 1 % (0-10); Neutrophil 80 % (42-75)
[2022-05-10 08:38] LABS: Platelet Morphology Comment Appears Adequate
[2022-05-10 08:41] LABS: RBC Morphology Normal
[2022-05-10] MEDS ORDERED: Enoxaparin Sodium 30 MG/0.3 ML SYRINGE SC SCH (09:00)
[2022-05-10] MEDS: Potassium Bicarbonate/Cit Ac 20 MEQ TAB PER TUBE SCH ×2 (09:09→12:23)
[2022-05-10] MEDS: Nystatin 500,000 UNITS/5 ML UDCUP SSW SCH ×4 (09:59→20:51)
[2022-05-10] MEDS ORDERED: Magnesium 2 GM/50 ML(in water) 2 GM in Premix Bag 1 BAG IVPB SCH (10:00)
[2022-05-10] MEDS: Acetylcysteine 800 MG/4 ML VIAL INH SCH ×2 (11:34→22:45)
[2022-05-10] MEDS: HumaLOG 300 UNITS/3 ML VIAL SC PRN ×2 (11:34→15:42)
[2022-05-10] MEDS: Lorazepam 2 MG/ML VIAL SLOW IVP PRN ×2 (17:25→23:34)
[2022-05-10 20:09] LABS: Potassium 3.6 mmol/L (3.5-5.1)
[2022-05-10] MEDS: Atorvastatin Calcium 40 MG TAB PO SCH (20:35)
[2022-05-11] MEDS: Pantoprazole 80 MG in Sodium Chloride 0.9% 100 ML IVPB SCH (01:01)
[2022-05-11] MEDS: Propofol 1,000 MG/100 ML VIAL IV PRN ×2 (01:04→11:34)
[2022-05-11 03:24] LABS: Actual Bicarbonate (HCO3a) 21.3 mEq/L (22-28); Base Excess (BEa) -2.6 mEq/L (-2.0 to +3.0); Calcium, Ionized (arterial) 1.12 mmol/L (1.12-1.30); Carboxyhemoglobin (COHb) 0.3 gm% (0.0-3.0); Critical Notified By: CP.PH; Hemoglobin (Hb) 8.7 g/dL (12.0-16.0); Potassium - ABG Lab 3.8 mmol/L (3.70-5.30); Puncture Site LRA; RapidComm Collect By CP.PH; pH, Arterial 7.43 (7.35-7.45)
[2022-05-11] MEDS: Lorazepam 2 MG/ML VIAL SLOW IVP PRN (03:33)
[2022-05-11 03:37] LABS: Hemoglobin 7.1 g/dL (12.0-15.5); Mean Corpuscular HGB CONC 32.9 g/dL (32.0-36.0); Mean Corpuscular Hemoglobin 29.3 pg (27.0-33.0); Mean Corpuscular Volume 89.3 fl (81.6-98.3); Platelet Count 287 10x3/uL (150-450); RBC Distribution Width 14.1 % (11.5-14.5); Red Blood Cell (RBC) Count 2.42 10x6/uL (3.90-5.03); White Blood Cell (WBC) Count 25.3 10x3/uL (3.5-10.5)
[2022-05-11 03:55] LABS: Anion Gap 10 mmol/L (10-20); BUN (Urea Nitrogen) 48 mg/dL (9.8-20.1); Calc. Creatinine Clearance 40 mL/min (70-130); Calcium 7.3 mg/dL (7.8-10.44); Carbon Dioxide 23 mmol/L (23-31); Chloride 122 mmol/L (98-107); Estimated GFR 56; Glucose 198 mg/dL (83-110); Magnesium 2.4 mg/dL (1.6-2.6); Potassium 3.9 mmol/L (3.5-5.1)
[2022-05-11 03:57] LABS: MDiff Complete? YES; Sodium 151 mmol/L (136-145)
[2022-05-11 04:00] LABS: Band 8 % (5-11); Lymphocytes 3 % (21-51); Metamyelocyte 2 % (0-0); Monocytes 3 % (0-10); Neutrophil 84 % (42-75)
[2022-05-11] MEDS ORDERED: Nitroglycerin 2% Ointment 1 INCH/1 GM Packet TOP SCH (04:00)
[2022-05-11 04:01] LABS: Platelet Morphology Comment Appears Adequate; RBC Morphology Normal
[2022-05-11 04:02] LABS: Troponin I 0.019 ng/mL (< 0.028)
[2022-05-11] MEDS: Oxacillin 2 GM in Sodium Chloride 0.9% 100 ML IVPB SCH ×3 (05:08→17:10)
[2022-05-11] MEDS ORDERED: Labetalol HCl 100 MG/20 ML VIAL SLOW IVP PRN (08:12)
[2022-05-11] MEDS: guaiFENesin ER 600 MG TAB PO SCH ×2 (08:32→20:46)
[2022-05-11] MEDS: Lisinopril 10 MG TAB PO SCH ×2 (08:32→20:46)
[2022-05-11] MEDS: Hydrocortisone Sod Succ/PF 100 mg/2 ml Vial IVP SCH (08:35)
[2022-05-11] MEDS: Lantus 1000 UNITS/10 ML VIAL SC SCH (08:36)
[2022-05-11] MEDS: cloNIDine 0.1 MG TAB PO SCH ×3 (08:43→20:46)
[2022-05-11] MEDS: glipiZIDE 10 MG TAB PO SCH ×2 (08:48→16:30)
[2022-05-11] MEDS: Meropenem 1 GM in Sodium Chloride 0.9% 100 ML IVPB SCH ×3 (09:04→20:45)
[2022-05-11] MEDS: Nystatin 500,000 UNITS/5 ML UDCUP SSW SCH ×4 (09:31→20:47)
[2022-05-11] MEDS ORDERED: Dextrose 5% in Water 1,000 ML ONE (09:39)
[2022-05-11] MEDS: Dextrose 5% in Water 1,000 ML IV SCH (09:44)
[2022-05-11] MEDS: Famotidine 20 MG TAB PO SCH (09:44)
[2022-05-11] MEDS: Enoxaparin Sodium 40 MG/0.4 ML SYRINGE SC SCH (09:44)
[2022-05-11] MEDS: Carvedilol 25 MG TAB PO SCH ×2 (09:48→20:46)
[2022-05-11] MEDS: NIFEdipine XL 60 MG TAB PO SCH ×2 (09:48→20:47)
[2022-05-11] MEDS: HumaLOG 300 UNITS/3 ML VIAL SC PRN ×2 (10:56→17:04)
[2022-05-11] MEDS: Acetylcysteine 800 MG/4 ML VIAL INH SCH ×2 (11:50→23:00)
[2022-05-11] MEDS: hydrALAZINE 20 MG/ML VIAL SLOW IVP PRN (18:08)
[2022-05-11] MEDS: Atorvastatin Calcium 40 MG TAB PO SCH (20:46)
[2022-05-12] MEDS: Oxacillin 2 GM in Sodium Chloride 0.9% 100 ML IVPB SCH ×5 (00:16→23:42)
[2022-05-12] MEDS: hydrALAZINE 20 MG/ML VIAL SLOW IVP PRN ×3 (02:12→23:59)
[2022-05-12 03:45] LABS: #Monocytes 0.9 10x3/uL (0.0-1.1); #Neutrophils 16.5 10x3/uL (1.5-8.4); %Basophils 0.2 % (0.0-2.0); %Lymphocytes 8.2 % (18.0-47.0); %Monocytes 4.6 % (0.0-10.0); %Neutrophils 82.8 % (40.0-75.0); Hemoglobin 10.1 g/dL (12.0-15.5); Mean Corpuscular HGB CONC 34.8 g/dL (32.0-36.0); Mean Corpuscular Volume 86.1 fl (81.6-98.3); Platelet Count 224 10x3/uL (150-450); RBC Distribution Width 14.3 % (11.5-14.5); Red Blood Cell (RBC) Count 3.37 10x6/uL (3.90-5.03); White Blood Cell (WBC) Count 19.9 10x3/uL (3.5-10.5)
[2022-05-12 03:57] LABS: Anion Gap 12 mmol/L (10-20); BUN (Urea Nitrogen) 37 mg/dL (9.8-20.1); CRP (Inflammatory) 3.17 mg/dL (= or < 0.5); Calc. Creatinine Clearance 52 mL/min (70-130); Calcium 7.1 mg/dL (7.8-10.44); Carbon Dioxide 21 mmol/L (23-31); Chloride 116 mmol/L (98-107); Estimated GFR 72; Glucose 233 mg/dL (83-110); Potassium 2.8 mmol/L (3.5-5.1); Sodium 146 mmol/L (136-145)
[2022-05-12 04:07] LABS: ALV-art Gradient 175.775 mmHg (0-20); Actual Bicarbonate (HCO3a) 21.8 mEq/L (22-28); Base Excess (BEa) -0.5 mEq/L (-2.0 to +3.0); CO2 Tension 28.5 mmHg (35.0-45.0); Calcium, Ionized (arterial) 1.04 mmol/L (1.12-1.30); Carboxyhemoglobin (COHb) 0.3 gm% (0.0-3.0); Critical Notified By: CP.PH; Hemoglobin (Hb) 11.2 g/dL (12.0-16.0); O2 Tension (PaO2), arterial 73.8 mmHg (> 70.0); Potassium - ABG Lab 2.8 mmol/L (3.70-5.30); Puncture Site LRA; RapidComm Collect By CP.PH
[2022-05-12] MEDS: HumaLOG 300 UNITS/3 ML VIAL SC PRN ×3 (04:20→21:44)
[2022-05-12] MEDS: Potassium Bicarbonate/Cit Ac 20 MEQ TAB PER TUBE SCH ×2 (05:05→10:45)
[2022-05-12] MEDS: Dextrose 5% in Water 1,000 ML IV SCH (05:14)
[2022-05-12] MEDS: Propofol 1,000 MG/100 ML VIAL IV PRN (06:33)
[2022-05-12] MEDS: Lisinopril 10 MG TAB PO SCH (08:10)
[2022-05-12] MEDS: Famotidine 20 MG TAB PO SCH (08:10)
[2022-05-12] MEDS: NIFEdipine XL 60 MG TAB PO SCH (08:10)
[2022-05-12] MEDS: Carvedilol 25 MG TAB PO SCH ×2 (08:11→17:56)
[2022-05-12] MEDS: guaiFENesin ER 600 MG TAB PO SCH ×2 (08:11→20:29)
[2022-05-12] MEDS: cloNIDine 0.1 MG TAB PO SCH (08:11)
[2022-05-12] MEDS: glipiZIDE 10 MG TAB PO SCH ×2 (08:11→16:22)
[2022-05-12] MEDS: Enoxaparin Sodium 40 MG/0.4 ML SYRINGE SC SCH (08:11)
[2022-05-12] MEDS: Meropenem 1 GM in Sodium Chloride 0.9% 100 ML IVPB SCH ×2 (08:12→20:29)
[2022-05-12] MEDS: Nystatin 500,000 UNITS/5 ML UDCUP SSW SCH ×4 (08:12→20:29)
[2022-05-12] MEDS ORDERED: NIFEdipine 10 MG CAP PO SCH (08:15)
[2022-05-12] MEDS ORDERED: Venlafaxine HCl 25 MG TAB PO SCH (09:00)
[2022-05-12] MEDS ORDERED: NIFEdipine XL 90 MG TAB PO SCH (09:00)
[2022-05-12] MEDS: Lantus 1000 UNITS/10 ML VIAL SC SCH (09:32)
[2022-05-12 09:40] LABS: ALT (SGPT) 9 U/L (8-55); AST (SGOT) 14 U/L (5-34); Albumin 2.3 g/dL (3.4-4.8); Alkaline Phosphatase 79 U/L (40-110); Anion Gap 11 mmol/L (10-20); BUN (Urea Nitrogen) 35 mg/dL (9.8-20.1); Bilirubin, Total 0.3 mg/dL (0.2-1.2); Calc. Creatinine Clearance 54 mL/min (70-130); Calcium 7.3 mg/dL (7.8-10.44); Carbon Dioxide 23 mmol/L (23-31); Chloride 114 mmol/L (98-107); Estimated GFR 73; Globulin 3.1 g/dL (2.4-3.5); Glucose 203 mg/dL (83-110); Protein, Total 5.4 g/dL (5.8-8.1); Sodium 145 mmol/L (136-145)
[2022-05-12] MEDS ORDERED: Dexamethasone 20 MG/5 ML VIAL SLOW IVP SCH (10:15)
[2022-05-12] MEDS: Dextrose 5% w/ 20 mEq KCl 1,000 ML IV SCH ×2 (10:40→20:28)
[2022-05-12] MEDS: Potassium Chloride 20 MEQ in Premix Bag 1 BAG IVPB SCH ×2 (10:42→12:56)
[2022-05-12] MEDS: Acetylcysteine 800 MG/4 ML VIAL INH SCH ×2 (10:45→21:27)
[2022-05-12] MEDS ORDERED: Budesonide 0.5 MG/2 ML NEB ONE (11:05)
[2022-05-12] MEDS ORDERED: Budesonide 0.5 MG/2 ML NEB NEB SCH (11:30)
[2022-05-12] MEDS ORDERED: Lorazepam 2 MG/ML VIAL SLOW IVP PRN (11:38)
[2022-05-12] MEDS ORDERED: Lisinopril 10 MG TAB PO SCH (12:00)
[2022-05-12] MEDS: FENTANYL 2,000MCG/100-0.9%NACL 100 ML IVPB SCH (12:40)
[2022-05-12] MEDS: Lorazepam 2 MG/ML VIAL SLOW IVP PRN (14:47)
[2022-05-12 15:44] LABS: Potassium 4.2 mmol/L (3.5-5.1)
[2022-05-12] MEDS: Dexamethasone 4 mg/ml Vial SLOW IVP SCH ×2 (16:24→21:35)
[2022-05-12] MEDS ORDERED: Fluconazole In NaCl,Iso-Osm 200 MG in Premix Bag 1 BAG IVPB SCH (18:00)
[2022-05-12] MEDS ORDERED: Dextrose 5% w/ 20 mEq KCl 1,000 ML ONE (20:24)
[2022-05-12] MEDS: Atorvastatin Calcium 40 MG TAB PO SCH (20:29)
[2022-05-12] MEDS: Budesonide 0.5 MG/2 ML NEB NEB SCH (21:23)
[2022-05-12] MEDS: Lisinopril 20 MG TAB PO SCH (23:42)
[2022-05-13] MEDS: Dextrose 5% in Water 1,000 ML IV SCH (01:47)
[2022-05-13] MEDS: Lorazepam 2 MG/ML VIAL SLOW IVP PRN ×2 (02:29→06:19)
[2022-05-13] MEDS: FENTANYL 2,000MCG/100-0.9%NACL 100 ML IVPB SCH ×2 (03:25→21:13)
[2022-05-13] MEDS: Dexamethasone 4 mg/ml Vial SLOW IVP SCH ×2 (03:50→09:19)
[2022-05-13 03:51] LABS: #Monocytes 0.4 10x3/uL (0.0-1.1); #Neutrophils 15.2 10x3/uL (1.5-8.4); %Basophils 0.2 % (0.0-2.0); %Monocytes 2.1 % (0.0-10.0); %Neutrophils 90.8 % (40.0-75.0); Hemoglobin 11.1 g/dL (12.0-15.5); Mean Corpuscular HGB CONC 34.9 g/dL (32.0-36.0); Mean Corpuscular Hemoglobin 30.6 pg (27.0-33.0); Mean Corpuscular Volume 87.6 fl (81.6-98.3); Mean Platelet Volume 10.7 fl (7.4-10.4); Platelet Count 296 10x3/uL (150-450); RBC Distribution Width 14.9 % (11.5-14.5); Red Blood Cell (RBC) Count 3.63 10x6/uL (3.90-5.03); White Blood Cell (WBC) Count 16.8 10x3/uL (3.5-10.5)
[2022-05-13] MEDS: HumaLOG 300 UNITS/3 ML VIAL SC PRN ×5 (03:54→23:28)
[2022-05-13 04:49] LABS: Anion Gap 10 mmol/L (10-20); BUN (Urea Nitrogen) 32 mg/dL (9.8-20.1); Calc. Creatinine Clearance 54 mL/min (70-130); Calcium 6.9 mg/dL (7.8-10.44); Carbon Dioxide 22 mmol/L (23-31); Chloride 111 mmol/L (98-107); Estimated GFR 73; Glucose 321 mg/dL (83-110); Potassium 4.4 mmol/L (3.5-5.1); Sodium 139 mmol/L (136-145)
[2022-05-13 04:53] LABS: Actual Bicarbonate (HCO3a) 21.6 mEq/L (22-28); CO2 Tension 33.4 mmHg (35.0-45.0); Calcium, Ionized (arterial) 1.03 mmol/L (1.12-1.30); Carboxyhemoglobin (COHb) 0.3 gm% (0.0-3.0); Hemoglobin (Hb) 12.4 g/dL (12.0-16.0); O2 Tension (PaO2), arterial 78.9 mmHg (> 70.0); Potassium - ABG Lab 4.3 mmol/L (3.70-5.30); Puncture Site RRA; RapidComm Collect By mtc; pH, Arterial 7.43 (7.35-7.45)
[2022-05-13 05:01] LABS: CRP (Inflammatory) 4.21 mg/dL (= or < 0.5)
[2022-05-13] MEDS: Oxacillin 2 GM in Sodium Chloride 0.9% 100 ML IVPB SCH ×4 (05:13→23:27)
[2022-05-13] MEDS: Carvedilol 25 MG TAB PO SCH ×2 (05:13→17:01)
[2022-05-13] MEDS: Enoxaparin Sodium 40 MG/0.4 ML SYRINGE SC SCH (08:18)
[2022-05-13] MEDS: guaiFENesin ER 600 MG TAB PO SCH ×2 (08:18→20:49)
[2022-05-13] MEDS: Famotidine 20 MG TAB PO SCH (08:18)
[2022-05-13] MEDS: Acetylcysteine 800 MG/4 ML VIAL INH SCH ×2 (08:20→21:49)
[2022-05-13] MEDS: Budesonide 0.5 MG/2 ML NEB NEB SCH ×2 (08:20→21:49)
[2022-05-13] MEDS: glipiZIDE 10 MG TAB PO SCH ×2 (08:32→16:02)
[2022-05-13] MEDS: Nystatin 500,000 UNITS/5 ML UDCUP SSW SCH ×4 (08:32→20:49)
[2022-05-13] MEDS: Meropenem 1 GM in Sodium Chloride 0.9% 100 ML IVPB SCH ×2 (08:35→20:49)
[2022-05-13] MEDS: Lantus 1000 UNITS/10 ML VIAL SC SCH ×2 (08:54→20:50)
[2022-05-13] MEDS: hydrALAZINE 20 MG/ML VIAL SLOW IVP PRN ×2 (12:33→22:07)
[2022-05-13] MEDS: Lisinopril 20 MG TAB PO SCH ×2 (12:48→23:28)
[2022-05-13] MEDS: Furosemide 20 MG/2 ML VIAL SLOW IVP SCH (13:58)
[2022-05-13] MEDS: Fluconazole In NaCl,Iso-Osm 100 MG, Admixture Fee 1 EACH in Premix Bag 1 BAG IVPB SCH (17:02)
[2022-05-13] MEDS: Atorvastatin Calcium 40 MG TAB PO SCH (20:49)
[2022-05-14] MEDS: Dextrose 5% in Water 1,000 ML IV SCH ×2 (00:43→19:44)
[2022-05-14 03:49] LABS: Anion Gap 11 mmol/L (10-20); BUN (Urea Nitrogen) 35 mg/dL (9.8-20.1); CRP (Inflammatory) 1.69 mg/dL (= or < 0.5); Calc. Creatinine Clearance 60 mL/min (70-130); Carbon Dioxide 22 mmol/L (23-31); Chloride 105 mmol/L (98-107); Estimated GFR 80; Glucose 213 mg/dL (83-110); Potassium 3.7 mmol/L (3.5-5.1); Sodium 134 mmol/L (136-145)
[2022-05-14 03:58] LABS: Hemoglobin 11.2 g/dL (12.0-15.5); Mean Corpuscular HGB CONC 34.1 g/dL (32.0-36.0); Mean Corpuscular Hemoglobin 30.3 pg (27.0-33.0); Mean Corpuscular Volume 88.6 fl (81.6-98.3); Mean Platelet Volume 10.7 fl (7.4-10.4); Platelet Count 361 10x3/uL (150-450); RBC Distribution Width 15.2 % (11.5-14.5); White Blood Cell (WBC) Count 22.3 10x3/uL (3.5-10.5)
[2022-05-14 03:59] LABS: MDiff Complete? YES
[2022-05-14 04:59] LABS: Actual Bicarbonate (HCO3a) 22.8 mEq/L (22-28); CO2 Tension 39.4 mmHg (35.0-45.0); Calcium, Ionized (arterial) 1.02 mmol/L (1.12-1.30); Carboxyhemoglobin (COHb) 0.3 gm% (0.0-3.0); O2 Tension (PaO2), arterial 76.4 mmHg (> 70.0); Potassium - ABG Lab 3.6 mmol/L (3.70-5.30); Puncture Site RRA; pH, Arterial 7.38 (7.35-7.45)
[2022-05-14 05:01] LABS: Lymphocytes 6 % (21-51); Monocytes 7 % (0-10); Neutrophil 87 % (42-75)
[2022-05-14] MEDS: hydrALAZINE 20 MG/ML VIAL SLOW IVP PRN ×2 (05:52→21:05)
[2022-05-14] MEDS: Oxacillin 2 GM in Sodium Chloride 0.9% 100 ML IVPB SCH ×4 (05:53→23:53)
[2022-05-14] MEDS: Furosemide 20 MG/2 ML VIAL SLOW IVP SCH ×2 (05:53→13:28)
[2022-05-14] MEDS: Carvedilol 25 MG TAB PO SCH ×2 (05:53→18:00)
[2022-05-14] MEDS: HumaLOG 300 UNITS/3 ML VIAL SC PRN ×2 (06:32→12:08)
[2022-05-14] MEDS: Budesonide 0.5 MG/2 ML NEB NEB SCH ×2 (07:24→20:48)
[2022-05-14] MEDS: Meropenem 1 GM in Sodium Chloride 0.9% 100 ML IVPB SCH ×2 (08:38→20:02)
[2022-05-14] MEDS: Famotidine 20 MG TAB PO SCH (08:39)
[2022-05-14] MEDS: guaiFENesin ER 600 MG TAB PO SCH ×2 (08:39→20:02)
[2022-05-14] MEDS: glipiZIDE 10 MG TAB PO SCH ×2 (08:39→17:58)
[2022-05-14] MEDS: Nystatin 500,000 UNITS/5 ML UDCUP SSW SCH ×4 (08:39→20:03)
[2022-05-14] MEDS: Enoxaparin Sodium 40 MG/0.4 ML SYRINGE SC SCH (08:39)
[2022-05-14] MEDS ORDERED: Docusate 100 MG CAP PO PRN (09:11)
[2022-05-14] MEDS ORDERED: Docusate Sodium 100 MG/10 ML UDCUP PO PRN (09:30)
[2022-05-14] MEDS: Lantus 1000 UNITS/10 ML VIAL SC SCH ×3 (09:47→20:03)
[2022-05-14] MEDS ORDERED: Senokot 8.6 MG TAB PO PRN (10:59)
[2022-05-14] MEDS: Acetylcysteine 800 MG/4 ML VIAL INH SCH ×2 (11:01→20:47)
[2022-05-14 11:49] LABS: Actual Bicarbonate (HCO3a) 20.9 mEq/L (22-28); Base Excess (BEa) -2.3 mEq/L (-2.0 to +3.0); CO2 Tension 31.4 mmHg (35.0-45.0); Calcium, Ionized (arterial) 1.03 mmol/L (1.12-1.30); Carboxyhemoglobin (COHb) 0.1 gm% (0.0-3.0); Hemoglobin (Hb) 12.2 g/dL (12.0-16.0); O2 Tension (PaO2), arterial 67.4 mmHg (> 70.0); Potassium - ABG Lab 3.3 mmol/L (3.70-5.30); Puncture Site RRA; pH, Arterial 7.44 (7.35-7.45)
[2022-05-14] MEDS: Lisinopril 20 MG TAB PO SCH ×2 (12:04→23:23)
[2022-05-14] MEDS ORDERED: Chloraseptic Spray 180 ml Bottle PO PRN (17:13)
[2022-05-14] MEDS ORDERED: Ketorolac Tromethamine 30 MG/ML VIAL IVP SCH (18:00)
[2022-05-14] MEDS: Fluconazole In NaCl,Iso-Osm 100 MG, Admixture Fee 1 EACH in Premix Bag 1 BAG IVPB SCH (18:03)
[2022-05-14] MEDS: Metoprolol Tartrate 5 MG/5 ML VIAL IVP PRN (18:05)
[2022-05-14] MEDS: Morphine 4 MG/ML VIAL SLOW IVP PRN (20:01)
[2022-05-14] MEDS: Atorvastatin Calcium 40 MG TAB PO SCH (20:02)
[2022-05-15] MEDS: Morphine 4 MG/ML VIAL SLOW IVP PRN ×3 (00:01→09:11)
[2022-05-15 04:31] LABS: #Monocytes 1.5 10x3/uL (0.0-1.1); #Neutrophils 16.1 10x3/uL (1.5-8.4); %Basophils 0.2 % (0.0-2.0); %Lymphocytes 7.3 % (18.0-47.0); %Monocytes 7.8 % (0.0-10.0); %Neutrophils 83.5 % (40.0-75.0); Hemoglobin 12.8 g/dL (12.0-15.5); Mean Corpuscular HGB CONC 34.6 g/dL (32.0-36.0); Mean Corpuscular Hemoglobin 30.3 pg (27.0-33.0); Mean Corpuscular Volume 87.5 fl (81.6-98.3); Platelet Count 413 10x3/uL (150-450); RBC Distribution Width 14.9 % (11.5-14.5); Red Blood Cell (RBC) Count 4.23 10x6/uL (3.90-5.03); White Blood Cell (WBC) Count 19.3 10x3/uL (3.5-10.5)
[2022-05-15 04:32] LABS: Anion Gap 14 mmol/L (10-20); BUN (Urea Nitrogen) 35 mg/dL (9.8-20.1); Calc. Creatinine Clearance 67 mL/min (70-130); Calcium 7.6 mg/dL (7.8-10.44); Carbon Dioxide 20 mmol/L (23-31); Chloride 107 mmol/L (98-107); Estimated GFR 85; Glucose 70 mg/dL (83-110); Potassium 3.3 mmol/L (3.5-5.1); Sodium 138 mmol/L (136-145)
[2022-05-15] MEDS ORDERED: Potassium Chloride 40 MEQ in Premix Bag 1 BAG IVPB SCH (05:00)
[2022-05-15] MEDS: Carvedilol 25 MG TAB PO SCH ×2 (05:29→17:13)
[2022-05-15] MEDS: Furosemide 20 MG/2 ML VIAL SLOW IVP SCH ×2 (05:31→14:12)
[2022-05-15] MEDS: Oxacillin 2 GM in Sodium Chloride 0.9% 100 ML IVPB SCH ×4 (05:32→23:59)
[2022-05-15] MEDS: Budesonide 0.5 MG/2 ML NEB NEB SCH ×2 (07:28→19:35)
[2022-05-15] MEDS: Dextrose 50% Abboject 50 ML SYRINGE SLOW IVP PRN (07:30)
[2022-05-15] MEDS: Enoxaparin Sodium 40 MG/0.4 ML SYRINGE SC SCH (07:41)
[2022-05-15] MEDS: Nystatin 500,000 UNITS/5 ML UDCUP SSW SCH ×4 (07:41→20:20)
[2022-05-15] MEDS: Metoprolol Tartrate 5 MG/5 ML VIAL IVP PRN (10:05)
[2022-05-15] MEDS: Acetylcysteine 800 MG/4 ML VIAL INH SCH ×2 (11:36→19:35)
[2022-05-15] MEDS: Lisinopril 20 MG TAB PO SCH ×2 (12:00→23:53)
[2022-05-15] MEDS: Lantus 1000 UNITS/10 ML VIAL SC SCH ×2 (12:52→20:11)
[2022-05-15] MEDS: glipiZIDE 10 MG TAB PO SCH ×2 (12:52→16:47)
[2022-05-15] MEDS: HYDROcodone/Acetaminophen 5/325 mg Tablet PER TUBE PRN ×3 (14:11→23:50)
[2022-05-15] MEDS: Famotidine 20 MG TAB PO SCH (14:11)
[2022-05-15] MEDS: Polyethylene Glycol 3350 17 GM Packet PER TUBE SCH (14:12)
[2022-05-15] MEDS: guaiFENesin ER 600 MG TAB PO SCH ×2 (14:12→20:06)
[2022-05-15] MEDS: Atorvastatin Calcium 40 MG TAB PO SCH (20:06)
[2022-05-16 04:40] LABS: #Monocytes 1.4 10x3/uL (0.0-1.1); #Neutrophils 12.4 10x3/uL (1.5-8.4); %Basophils 0.1 % (0.0-2.0); %Lymphocytes 7.4 % (18.0-47.0); %Monocytes 9.4 % (0.0-10.0); %Neutrophils 82.4 % (40.0-75.0); Hemoglobin 10.1 g/dL (12.0-15.5); Mean Corpuscular HGB CONC 33.8 g/dL (32.0-36.0); Mean Corpuscular Volume 88.7 fl (81.6-98.3); Mean Platelet Volume 10.8 fl (7.4-10.4); Platelet Count 331 10x3/uL (150-450); RBC Distribution Width 15.1 % (11.5-14.5); Red Blood Cell (RBC) Count 3.37 10x6/uL (3.90-5.03); White Blood Cell (WBC) Count 15.1 10x3/uL (3.5-10.5)
[2022-05-16 04:47] LABS: Anion Gap 11 mmol/L (10-20); BUN (Urea Nitrogen) 39 mg/dL (9.8-20.1); Calc. Creatinine Clearance 61 mL/min (70-130); Calcium 7.4 mg/dL (7.8-10.44); Carbon Dioxide 25 mmol/L (23-31); Chloride 107 mmol/L (98-107); Estimated GFR 76; Glucose 195 mg/dL (83-110); Potassium 3.4 mmol/L (3.5-5.1); Sodium 140 mmol/L (136-145)
[2022-05-16] MEDS: HumaLOG 300 UNITS/3 ML VIAL SC PRN ×3 (04:53→15:57)
[2022-05-16] MEDS: Oxacillin 2 GM in Sodium Chloride 0.9% 100 ML IVPB SCH ×4 (05:57→23:51)
[2022-05-16] MEDS: Carvedilol 25 MG TAB PO SCH ×2 (05:58→17:03)
[2022-05-16] MEDS ORDERED: Potassium Chloride 40 MEQ in Premix Bag 1 BAG IVPB SCH (06:00)
[2022-05-16] MEDS: Furosemide 20 MG/2 ML VIAL SLOW IVP SCH ×2 (06:39→13:38)
[2022-05-16] MEDS: Budesonide 0.5 MG/2 ML NEB NEB SCH ×2 (07:44→20:20)
[2022-05-16] MEDS: glipiZIDE 10 MG TAB PO SCH ×2 (07:56→17:02)
[2022-05-16] MEDS: guaiFENesin ER 600 MG TAB PO SCH (09:19)
[2022-05-16] MEDS: Nystatin 500,000 UNITS/5 ML UDCUP SSW SCH ×4 (09:19→21:38)
[2022-05-16] MEDS: Polyethylene Glycol 3350 17 GM Packet PER TUBE SCH (09:20)
[2022-05-16] MEDS: Enoxaparin Sodium 40 MG/0.4 ML SYRINGE SC SCH (09:20)
[2022-05-16] MEDS: Lantus 1000 UNITS/10 ML VIAL SC SCH ×2 (09:30→23:33)
[2022-05-16] MEDS: Famotidine 20 MG TAB PO SCH (09:33)
[2022-05-16] MEDS: HYDROcodone/Acetaminophen 5/325 mg Tablet PER TUBE PRN ×2 (09:33→21:38)
[2022-05-16 12:16] LABS: Magnesium 1.7 mg/dL (1.6-2.6)
[2022-05-16] MEDS: Lisinopril 20 MG TAB PO SCH ×2 (12:23→23:53)
[2022-05-16] MEDS ORDERED: Magnesium 2 GM/50 ML(in water) 2 GM in Premix Bag 1 BAG IVPB SCH (13:00)
[2022-05-16] MEDS: Atorvastatin Calcium 40 MG TAB PO SCH (21:38)
[2022-05-17] MEDS: guaiFENesin ER 600 MG TAB PO SCH ×3 (00:59→22:08)
[2022-05-17] MEDS: HYDROcodone/Acetaminophen 5/325 mg Tablet PER TUBE PRN ×2 (01:02→10:06)
[2022-05-17 06:03] LABS: #Monocytes 1.5 10x3/uL (0.0-1.1); %Basophils 0.2 % (0.0-2.0); %Lymphocytes 10.4 % (18.0-47.0); %Monocytes 10.4 % (0.0-10.0); %Neutrophils 78.4 % (40.0-75.0); Hemoglobin 10.6 g/dL (12.0-15.5); Mean Corpuscular HGB CONC 33.3 g/dL (32.0-36.0); Mean Corpuscular Hemoglobin 29.9 pg (27.0-33.0); Mean Corpuscular Volume 89.8 fl (81.6-98.3); Mean Platelet Volume 10.7 fl (7.4-10.4); Platelet Count 323 10x3/uL (150-450); RBC Distribution Width 15.2 % (11.5-14.5); Red Blood Cell (RBC) Count 3.54 10x6/uL (3.90-5.03); White Blood Cell (WBC) Count 14.1 10x3/uL (3.5-10.5)
[2022-05-17 06:09] LABS: Anion Gap 11 mmol/L (10-20); BUN (Urea Nitrogen) 34 mg/dL (9.8-20.1); Calc. Creatinine Clearance 71 mL/min (70-130); Calcium 7.8 mg/dL (7.8-10.44); Carbon Dioxide 28 mmol/L (23-31); Chloride 107 mmol/L (98-107); Estimated GFR 89; Potassium 3.3 mmol/L (3.5-5.1); Sodium 143 mmol/L (136-145)
[2022-05-17 06:14] LABS: Glucose 54 mg/dL (83-110)
[2022-05-17] MEDS ORDERED: Magnesium 2 GM/50 ML(in water) 2 GM in Premix Bag 1 BAG IVPB SCH ×2 (06:30→08:00)
[2022-05-17] MEDS ORDERED: Potassium Chloride 20 MEQ TAB PO SCH ×2 (06:30→08:00)
[2022-05-17] MEDS: Oxacillin 2 GM in Sodium Chloride 0.9% 100 ML IVPB SCH ×4 (06:31→22:37)
[2022-05-17] MEDS: Furosemide 20 MG/2 ML VIAL SLOW IVP SCH ×2 (06:31→12:55)
[2022-05-17] MEDS: Dextrose 50% Abboject 50 ML SYRINGE SLOW IVP PRN (06:32)
[2022-05-17] MEDS: Carvedilol 25 MG TAB PO SCH (07:15)
[2022-05-17] MEDS: Budesonide 0.5 MG/2 ML NEB NEB SCH ×2 (07:45→20:50)
[2022-05-17] MEDS: Enoxaparin Sodium 40 MG/0.4 ML SYRINGE SC SCH (08:57)
[2022-05-17] MEDS: Famotidine 20 MG TAB PO SCH ×2 (08:57→10:05)
[2022-05-17] MEDS: Lantus 1000 UNITS/10 ML VIAL SC SCH ×2 (08:59→22:19)
[2022-05-17] MEDS: glipiZIDE 10 MG TAB PO SCH (08:59)
[2022-05-17] MEDS: Nystatin 500,000 UNITS/5 ML UDCUP SSW SCH ×4 (09:00→22:07)
[2022-05-17] MEDS: Polyethylene Glycol 3350 17 GM Packet PER TUBE SCH (09:00)
[2022-05-17] MEDS: Lidocaine 5% Patch TD SCH (10:10)
[2022-05-17] MEDS ORDERED: Lidocaine 1% PF 5 ML VIAL ONE (11:54)
[2022-05-17] MEDS ORDERED: Sodium Bicarbonate 2.5 MEQ/5 ML VIAL ONE (11:54)
[2022-05-17] MEDS: Carvedilol 12.5 MG TAB PO SCH (17:02)
[2022-05-17] MEDS ORDERED: Lantus 1000 UNITS/10 ML VIAL ONE (20:41)
[2022-05-17] MEDS: Lisinopril 20 MG TAB PO SCH (22:06)
[2022-05-17] MEDS: Atorvastatin Calcium 40 MG TAB PO SCH (22:07)
[2022-05-17] MEDS: Morphine 4 MG/ML VIAL SLOW IVP PRN (22:08)
[2022-05-17] MEDS: Transdermal Patch Removal TOP SCH (22:36)
[2022-05-17] MEDS: Amiodarone 200 MG TAB PO SCH (22:36)
[2022-05-18] MEDS: Oxacillin 2 GM in Sodium Chloride 0.9% 100 ML IVPB SCH ×4 (06:33→23:04)
[2022-05-18] MEDS: Furosemide 20 MG/2 ML VIAL SLOW IVP SCH ×2 (06:37→15:06)
[2022-05-18 07:00] LABS: #Monocytes 1.1 10x3/uL (0.0-1.1); #Neutrophils 9.3 10x3/uL (1.5-8.4); %Basophils 0.2 % (0.0-2.0); %Lymphocytes 10.1 % (18.0-47.0); %Monocytes 9.1 % (0.0-10.0); %Neutrophils 80.2 % (40.0-75.0); Hemoglobin 8.9 g/dL (12.0-15.5); Mean Corpuscular HGB CONC 32.6 g/dL (32.0-36.0); Mean Corpuscular Hemoglobin 29.9 pg (27.0-33.0); Mean Corpuscular Volume 91.6 fl (81.6-98.3); Mean Platelet Volume 10.5 fl (7.4-10.4); Platelet Count 311 10x3/uL (150-450); RBC Distribution Width 15.6 % (11.5-14.5); Red Blood Cell (RBC) Count 2.98 10x6/uL (3.90-5.03); White Blood Cell (WBC) Count 11.5 10x3/uL (3.5-10.5)
[2022-05-18 07:13] LABS: Anion Gap 12 mmol/L (10-20); BUN (Urea Nitrogen) 27 mg/dL (9.8-20.1); Calc. Creatinine Clearance 67 mL/min (70-130); Calcium 7.7 mg/dL (7.8-10.44); Carbon Dioxide 27 mmol/L (23-31); Chloride 103 mmol/L (98-107); Estimated GFR 83; Glucose 144 mg/dL (83-110); Magnesium 2.3 mg/dL (1.6-2.6); Potassium 3.3 mmol/L (3.5-5.1); Sodium 139 mmol/L (136-145)
[2022-05-18] MEDS: Budesonide 0.5 MG/2 ML NEB NEB SCH ×2 (07:47→20:17)
[2022-05-18] MEDS ORDERED: Potassium Chloride 20 MEQ TAB PO SCH ×2 (08:00→18:30)
[2022-05-18] MEDS: Lisinopril 20 MG TAB PO SCH ×2 (10:19→23:02)
[2022-05-18] MEDS: guaiFENesin ER 600 MG TAB PO SCH ×2 (10:19→23:02)
[2022-05-18] MEDS: Nystatin 500,000 UNITS/5 ML UDCUP SSW SCH ×5 (10:20→23:02)
[2022-05-18] MEDS: Famotidine 20 MG TAB PO SCH (10:20)
[2022-05-18] MEDS: Carvedilol 12.5 MG TAB PO SCH ×2 (10:20→21:16)
[2022-05-18] MEDS: Lidocaine 5% Patch TD SCH ×2 (10:20→10:46)
[2022-05-18] MEDS: Amiodarone 200 MG TAB PO SCH (10:20)
[2022-05-18] MEDS: Lantus 1000 UNITS/10 ML VIAL SC SCH ×2 (10:21→23:19)
[2022-05-18] MEDS: Polyethylene Glycol 3350 17 GM Packet PER TUBE SCH (10:22)
[2022-05-18] MEDS: HYDROcodone/Acetaminophen 5/325 mg Tablet PER TUBE PRN (10:26)
[2022-05-18 13:34] LABS: Potassium 3.6 mmol/L (3.5-5.1)
[2022-05-18] MEDS ORDERED: Atropine Sulfate 1 mg/10 ml Syringe ONE (19:30)
[2022-05-18] MEDS ORDERED: Atropine Sulfate 1 mg/1 ml Vial IVP PRN (19:37)
[2022-05-18 19:53] LABS: ALT (SGPT) 10 U/L (8-55); AST (SGOT) 16 U/L (5-34); Albumin 2.1 g/dL (3.4-4.8); Alkaline Phosphatase 56 U/L (40-110); Anion Gap 11 mmol/L (10-20); BUN (Urea Nitrogen) 24 mg/dL (9.8-20.1); Bilirubin, Total 0.2 mg/dL (0.2-1.2); Calc. Creatinine Clearance 67 mL/min (70-130); Calcium 7.5 mg/dL (7.8-10.44); Carbon Dioxide 28 mmol/L (23-31); Chloride 105 mmol/L (98-107); Estimated GFR 85; Globulin 3.1 g/dL (2.4-3.5); Glucose 233 mg/dL (83-110); Potassium 4.1 mmol/L (3.5-5.1); Protein, Total 5.2 g/dL (5.8-8.1); Sodium 140 mmol/L (136-145)
[2022-05-18] MEDS ORDERED: Magnesium 2 GM/50 ML(in water) 2 GM in Premix Bag 1 BAG IVPB SCH (21:15)
[2022-05-18] MEDS: Atorvastatin Calcium 40 MG TAB PO SCH (23:02)
[2022-05-19] MEDS ORDERED: Magnesium 2 GM/50 ML(in water) 2 GM in Premix Bag 1 BAG IVPB SCH (02:00)
[2022-05-19] MEDS: Transdermal Patch Removal TOP SCH ×2 (02:03→21:00)
[2022-05-19] MEDS: Oxacillin 2 GM in Sodium Chloride 0.9% 100 ML IVPB SCH ×3 (06:06→18:23)
[2022-05-19] MEDS: Furosemide 20 MG/2 ML VIAL SLOW IVP SCH ×2 (06:06→15:00)
[2022-05-19 06:48] LABS: Anion Gap 16 mmol/L (10-20); BUN (Urea Nitrogen) 22 mg/dL (9.8-20.1); Calc. Creatinine Clearance 63 mL/min (70-130); Calcium 7.8 mg/dL (7.8-10.44); Carbon Dioxide 21 mmol/L (23-31); Chloride 109 mmol/L (98-107); Estimated GFR 89; Glucose 140 mg/dL (83-110); Magnesium 2.1 mg/dL (1.6-2.6); Potassium 5.5 mmol/L (3.5-5.1); Sodium 140 mmol/L (136-145)
[2022-05-19 07:03] LABS: #Monocytes 1.1 10x3/uL (0.0-1.1); #Neutrophils 9.3 10x3/uL (1.5-8.4); %Basophils 0.2 % (0.0-2.0); %Eosinophils 0.2 % (0.0-6.0); %Lymphocytes 18.3 % (18.0-47.0); %Monocytes 8.2 % (0.0-10.0); %Neutrophils 72.1 % (40.0-75.0); Hemoglobin 9.2 g/dL (12.0-15.5); Mean Corpuscular HGB CONC 33.5 g/dL (32.0-36.0); Mean Corpuscular Volume 89.6 fl (81.6-98.3); Mean Platelet Volume 11.4 fl (7.4-10.4); Platelet Count 313 10x3/uL (150-450); RBC Distribution Width 15.7 % (11.5-14.5); Red Blood Cell (RBC) Count 3.07 10x6/uL (3.90-5.03); White Blood Cell (WBC) Count 12.7 10x3/uL (3.5-10.5)
[2022-05-19] MEDS ORDERED: Carvedilol 6.25 MG TAB PO SCH (08:00)
[2022-05-19] MEDS: Budesonide 0.5 MG/2 ML NEB NEB SCH ×2 (08:05→20:05)
[2022-05-19] MEDS: Lisinopril 20 MG TAB PO SCH ×2 (09:56→22:56)
[2022-05-19] MEDS: guaiFENesin ER 600 MG TAB PO SCH ×2 (09:56→22:57)
[2022-05-19] MEDS: Lantus 1000 UNITS/10 ML VIAL SC SCH (09:56)
[2022-05-19] MEDS: Polyethylene Glycol 3350 17 GM Packet PER TUBE SCH (09:57)
[2022-05-19] MEDS: Lidocaine 5% Patch TD SCH (09:57)
[2022-05-19] MEDS: HYDROcodone/Acetaminophen 5/325 mg Tablet PER TUBE PRN ×2 (09:57→18:31)
[2022-05-19] MEDS: Nystatin 500,000 UNITS/5 ML UDCUP SSW SCH ×4 (09:57→21:00)
[2022-05-19] MEDS ORDERED: Amlodipine 5 MG TAB PO SCH (10:30)
[2022-05-19] MEDS: Morphine 4 MG/ML VIAL SLOW IVP PRN ×2 (15:35→22:55)
[2022-05-19] MEDS: Atorvastatin Calcium 40 MG TAB PO SCH (22:58)
[2022-05-20] MEDS: Oxacillin 2 GM in Sodium Chloride 0.9% 100 ML IVPB SCH ×6 (01:00→22:22)
[2022-05-20] MEDS: Lantus 1000 UNITS/10 ML VIAL SC SCH ×3 (04:01→21:00)
[2022-05-20] MEDS: Furosemide 20 MG/2 ML VIAL SLOW IVP SCH ×2 (05:39→15:00)
[2022-05-20 05:50] LABS: Anion Gap 13 mmol/L (10-20); BUN (Urea Nitrogen) 20 mg/dL (9.8-20.1); Calc. Creatinine Clearance 64 mL/min (70-130); Calcium 7.7 mg/dL (7.8-10.44); Carbon Dioxide 25 mmol/L (23-31); Chloride 103 mmol/L (98-107); Estimated GFR 91; Glucose 146 mg/dL (83-110); Sodium 137 mmol/L (136-145)
[2022-05-20 07:34] LABS: #Monocytes 0.7 10x3/uL (0.0-1.1); #Neutrophils 7.9 10x3/uL (1.5-8.4); %Basophils 0.3 % (0.0-2.0); %Lymphocytes 14.8 % (18.0-47.0); %Monocytes 7.1 % (0.0-10.0); %Neutrophils 76.1 % (40.0-75.0); Hemoglobin 8.9 g/dL (12.0-15.5); Mean Corpuscular HGB CONC 33.7 g/dL (32.0-36.0); Mean Corpuscular Hemoglobin 30.8 pg (27.0-33.0); Mean Corpuscular Volume 91.3 fl (81.6-98.3); Mean Platelet Volume 11.2 fl (7.4-10.4); Platelet Count 289 10x3/uL (150-450); RBC Distribution Width 15.4 % (11.5-14.5); Red Blood Cell (RBC) Count 2.89 10x6/uL (3.90-5.03); White Blood Cell (WBC) Count 10.4 10x3/uL (3.5-10.5)
[2022-05-20] MEDS: Budesonide 0.5 MG/2 ML NEB NEB SCH ×2 (07:58→20:29)
[2022-05-20] MEDS: Polyethylene Glycol 3350 17 GM Packet PER TUBE SCH (09:15)
[2022-05-20] MEDS: Lisinopril 20 MG TAB PO SCH ×2 (09:18→22:19)
[2022-05-20] MEDS: guaiFENesin ER 600 MG TAB PO SCH (09:41)
[2022-05-20] MEDS: Amlodipine 5 MG TAB PO SCH (09:41)
[2022-05-20] MEDS: Nystatin 500,000 UNITS/5 ML UDCUP SSW SCH ×4 (09:42→21:00)
[2022-05-20] MEDS: Lidocaine 5% Patch TD SCH (09:42)
[2022-05-20] MEDS: HYDROcodone/Acetaminophen 5/325 mg Tablet PER TUBE PRN ×3 (09:43→18:19)
[2022-05-20 15:25] VITALS: BMI 22.2
[2022-05-20] MEDS: Transdermal Patch Removal TOP SCH (21:00)
[2022-05-20] MEDS: Atorvastatin Calcium 40 MG TAB PO SCH (22:22)
[2022-05-20] MEDS: Morphine 4 MG/ML VIAL SLOW IVP PRN (22:28)
[2022-05-21 04:48] LABS: #Monocytes 0.7 10x3/uL (0.0-1.1); #Neutrophils 7.4 10x3/uL (1.5-8.4); %Basophils 0.2 % (0.0-2.0); %Lymphocytes 15.1 % (18.0-47.0); %Monocytes 6.9 % (0.0-10.0); %Neutrophils 77.4 % (40.0-75.0); Hemoglobin 8.6 g/dL (12.0-15.5); Mean Corpuscular HGB CONC 33.6 g/dL (32.0-36.0); Mean Corpuscular Hemoglobin 30.3 pg (27.0-33.0); Mean Corpuscular Volume 90.1 fl (81.6-98.3); Mean Platelet Volume 10.1 fl (7.4-10.4); Platelet Count 310 10x3/uL (150-450); RBC Distribution Width 15.3 % (11.5-14.5); Red Blood Cell (RBC) Count 2.84 10x6/uL (3.90-5.03); White Blood Cell (WBC) Count 9.5 10x3/uL (3.5-10.5)
[2022-05-21 05:02] LABS: Anion Gap 13 mmol/L (10-20); BUN (Urea Nitrogen) 15 mg/dL (9.8-20.1); Calc. Creatinine Clearance 72 mL/min (70-130); Calcium 7.7 mg/dL (7.8-10.44); Carbon Dioxide 29 mmol/L (23-31); Chloride 100 mmol/L (98-107); Estimated GFR 93; Potassium 3.2 mmol/L (3.5-5.1); Sodium 139 mmol/L (136-145)
[2022-05-21 05:05] LABS: Glucose 52 mg/dL (83-110)
[2022-05-21] MEDS: guaiFENesin ER 600 MG TAB PO SCH ×3 (05:17→19:51)
[2022-05-21] MEDS: Dextrose 50% Abboject 50 ML SYRINGE SLOW IVP PRN (05:31)
[2022-05-21] MEDS: Oxacillin 2 GM in Sodium Chloride 0.9% 100 ML IVPB SCH ×3 (05:31→16:42)
[2022-05-21] MEDS: Furosemide 20 MG/2 ML VIAL SLOW IVP SCH ×2 (06:02→13:18)
[2022-05-21] MEDS ORDERED: Potassium Chloride 20 MEQ TAB PO SCH (08:00)
[2022-05-21] MEDS: Budesonide 0.5 MG/2 ML NEB NEB SCH ×2 (08:08→20:50)
[2022-05-21] MEDS: Nystatin 500,000 UNITS/5 ML UDCUP SSW SCH ×4 (09:39→19:49)
[2022-05-21] MEDS: Amlodipine 5 MG TAB PO SCH (09:39)
[2022-05-21] MEDS: Lisinopril 20 MG TAB PO SCH ×2 (09:40→19:50)
[2022-05-21] MEDS: Lantus 1000 UNITS/10 ML VIAL SC SCH ×2 (09:41→19:58)
[2022-05-21] MEDS: Polyethylene Glycol 3350 17 GM Packet PER TUBE SCH (09:41)
[2022-05-21] MEDS: Lidocaine 5% Patch TD SCH (09:41)
[2022-05-21] MEDS: HYDROcodone/Acetaminophen 5/325 mg Tablet PER TUBE PRN ×3 (11:03→22:39)
[2022-05-21 12:55] LABS: Magnesium 1.6 mg/dL (1.6-2.6)
[2022-05-21] MEDS ORDERED: Magnesium 2 GM/50 ML(in water) 2 GM in Premix Bag 1 BAG IVPB SCH (13:15)
[2022-05-21 14:20] LABS: Potassium 3.8 mmol/L (3.5-5.1)
[2022-05-21] MEDS: Atorvastatin Calcium 40 MG TAB PO SCH (19:51)
[2022-05-21] MEDS: Transdermal Patch Removal TOP SCH (22:43)
[2022-05-22] MEDS: Oxacillin 2 GM in Sodium Chloride 0.9% 100 ML IVPB SCH ×5 (00:18→23:55)
[2022-05-22] MEDS: Morphine 4 MG/ML VIAL SLOW IVP PRN ×3 (00:24→22:46)
[2022-05-22 05:22] LABS: Anion Gap 11 mmol/L (10-20); BUN (Urea Nitrogen) 13 mg/dL (9.8-20.1); Calc. Creatinine Clearance 70 mL/min (70-130); Calcium 7.8 mg/dL (7.8-10.44); Carbon Dioxide 31 mmol/L (23-31); Chloride 99 mmol/L (98-107); Estimated GFR 93; Glucose 103 mg/dL (83-110); Sodium 138 mmol/L (136-145)
[2022-05-22] MEDS: hydrALAZINE 20 MG/ML VIAL SLOW IVP PRN ×2 (05:36→19:33)
[2022-05-22 05:46] LABS: #Monocytes 0.6 10x3/uL (0.0-1.1); #Neutrophils 6.2 10x3/uL (1.5-8.4); %Basophils 0.2 % (0.0-2.0); %Lymphocytes 16.7 % (18.0-47.0); %Neutrophils 75.9 % (40.0-75.0); Hemoglobin 8.4 g/dL (12.0-15.5); Mean Corpuscular HGB CONC 34.6 g/dL (32.0-36.0); Mean Corpuscular Hemoglobin 31.1 pg (27.0-33.0); Mean Platelet Volume 10.1 fl (7.4-10.4); Platelet Count 307 10x3/uL (150-450); RBC Distribution Width 15.1 % (11.5-14.5); White Blood Cell (WBC) Count 8.1 10x3/uL (3.5-10.5)
[2022-05-22] MEDS: Furosemide 20 MG/2 ML VIAL SLOW IVP SCH (06:00)
[2022-05-22] MEDS ORDERED: Budesonide 0.5 MG/2 ML NEB ONE (07:18)
[2022-05-22] MEDS: Budesonide 0.5 MG/2 ML NEB NEB SCH ×2 (07:23→20:41)
[2022-05-22] MEDS ORDERED: Potassium Chloride 20 MEQ TAB PO SCH ×2 (08:00→13:45)
[2022-05-22] MEDS ORDERED: Magnesium 2 GM/50 ML(in water) 2 GM in Premix Bag 1 BAG IVPB SCH (08:00)
[2022-05-22] MEDS: Amlodipine 5 MG TAB PO SCH (09:21)
[2022-05-22] MEDS: Nystatin 500,000 UNITS/5 ML UDCUP SSW SCH ×4 (09:21→21:54)
[2022-05-22] MEDS: Lidocaine 5% Patch TD SCH (09:21)
[2022-05-22] MEDS: HYDROcodone/Acetaminophen 5/325 mg Tablet PER TUBE PRN ×2 (09:22→19:34)
[2022-05-22] MEDS: guaiFENesin ER 600 MG TAB PO SCH ×2 (09:22→21:50)
[2022-05-22] MEDS: Polyethylene Glycol 3350 17 GM Packet PER TUBE SCH (09:23)
[2022-05-22] MEDS: Lantus 1000 UNITS/10 ML VIAL SC SCH ×2 (09:23→21:00)
[2022-05-22] MEDS: Lisinopril 20 MG TAB PO SCH ×2 (09:29→21:50)
[2022-05-22] MEDS ORDERED: Spironolactone 25 MG TAB PO SCH (11:15)
[2022-05-22 13:20] LABS: Potassium 3.1 mmol/L (3.5-5.1)
[2022-05-22] MEDS: Atorvastatin Calcium 40 MG TAB PO SCH (21:50)
[2022-05-22] MEDS: Transdermal Patch Removal TOP SCH (23:58)
[2022-05-23] MEDS: Morphine 4 MG/ML VIAL SLOW IVP PRN (02:21)
[2022-05-23 05:17] LABS: #Monocytes 0.7 10x3/uL (0.0-1.1); #Neutrophils 6.9 10x3/uL (1.5-8.4); %Basophils 0.3 % (0.0-2.0); %Lymphocytes 14.3 % (18.0-47.0); %Monocytes 7.6 % (0.0-10.0); %Neutrophils 77.5 % (40.0-75.0); Hemoglobin 9.6 g/dL (12.0-15.5); Mean Corpuscular Volume 90.9 fl (81.6-98.3); Mean Platelet Volume 9.9 fl (7.4-10.4); Platelet Count 377 10x3/uL (150-450); RBC Distribution Width 15.8 % (11.5-14.5); White Blood Cell (WBC) Count 8.9 10x3/uL (3.5-10.5)
[2022-05-23 05:20] LABS: Anion Gap 11 mmol/L (10-20); BUN (Urea Nitrogen) 11 mg/dL (9.8-20.1); Calc. Creatinine Clearance 65 mL/min (70-130); Calcium 8.1 mg/dL (7.8-10.44); Carbon Dioxide 28 mmol/L (23-31); Chloride 103 mmol/L (98-107); Estimated GFR 91; Glucose 83 mg/dL (83-110); Potassium 3.6 mmol/L (3.5-5.1); Sodium 138 mmol/L (136-145)
[2022-05-23] MEDS: Oxacillin 2 GM in Sodium Chloride 0.9% 100 ML IVPB SCH ×3 (05:21→18:13)
[2022-05-23] MEDS: Amlodipine 5 MG TAB PO SCH (06:01)
[2022-05-23] MEDS ORDERED: Amlodipine 5 MG TAB PO SCH (08:00)
[2022-05-23] MEDS: Budesonide 0.5 MG/2 ML NEB NEB SCH ×2 (08:18→19:55)
[2022-05-23] MEDS: Lidocaine 5% Patch TD SCH (08:43)
[2022-05-23] MEDS: Lisinopril 20 MG TAB PO SCH ×2 (08:44→20:46)
[2022-05-23] MEDS: Nystatin 500,000 UNITS/5 ML UDCUP SSW SCH ×4 (08:44→20:48)
[2022-05-23] MEDS: Polyethylene Glycol 3350 17 GM Packet PER TUBE SCH (08:44)
[2022-05-23] MEDS: guaiFENesin ER 600 MG TAB PO SCH ×2 (08:45→20:48)
[2022-05-23] MEDS: Spironolactone 25 MG TAB PO SCH (08:45)
[2022-05-23] MEDS: Lantus 1000 UNITS/10 ML VIAL SC SCH ×2 (08:46→22:16)
[2022-05-23] MEDS: HYDROcodone/Acetaminophen 5/325 mg Tablet PER TUBE PRN ×3 (08:59→20:45)
[2022-05-23] MEDS ORDERED: Furosemide 20 MG TAB PO SCH (11:00)
[2022-05-23] MEDS: hydrALAZINE 20 MG/ML VIAL SLOW IVP PRN (14:51)
[2022-05-23] MEDS: Atorvastatin Calcium 40 MG TAB PO SCH (20:48)
[2022-05-23] MEDS: Transdermal Patch Removal TOP SCH (22:16)
[2022-05-24] MEDS: Oxacillin 2 GM in Sodium Chloride 0.9% 100 ML IVPB SCH ×2 (00:47→05:57)
[2022-05-24] MEDS: Morphine 4 MG/ML VIAL SLOW IVP PRN (01:22)
[2022-05-24] MEDS: HYDROcodone/Acetaminophen 5/325 mg Tablet PER TUBE PRN ×2 (02:34→09:07)
[2022-05-24 05:28] LABS: #Eosinphils 0.1 10x3/uL (0.0-0.5); #Monocytes 0.7 10x3/uL (0.0-1.1); %Basophils 0.5 % (0.0-2.0); %Eosinophils 1.3 % (0.0-6.0); %Lymphocytes 16.2 % (18.0-47.0); %Monocytes 8.7 % (0.0-10.0); %Neutrophils 72.9 % (40.0-75.0); Hemoglobin 9.8 g/dL (12.0-15.5); Mean Corpuscular HGB CONC 33.4 g/dL (32.0-36.0); Mean Corpuscular Hemoglobin 30.2 pg (27.0-33.0); Mean Corpuscular Volume 90.4 fl (81.6-98.3); Mean Platelet Volume 9.8 fl (7.4-10.4); Platelet Count 369 10x3/uL (150-450); RBC Distribution Width 15.9 % (11.5-14.5); Red Blood Cell (RBC) Count 3.24 10x6/uL (3.90-5.03); White Blood Cell (WBC) Count 8.3 10x3/uL (3.5-10.5)
[2022-05-24 05:40] LABS: Anion Gap 11 mmol/L (10-20); BUN (Urea Nitrogen) 11 mg/dL (9.8-20.1); Calc. Creatinine Clearance 60 mL/min (70-130); Calcium 8.2 mg/dL (7.8-10.44); Carbon Dioxide 24 mmol/L (23-31); Chloride 101 mmol/L (98-107); Estimated GFR 91; Glucose 86 mg/dL (83-110); Sodium 133 mmol/L (136-145)
[2022-05-24] MEDS: Budesonide 0.5 MG/2 ML NEB NEB SCH (07:08)
[2022-05-24] MEDS ORDERED: Potassium Chloride 20 MEQ TAB PO SCH (08:00)
[2022-05-24] MEDS: Nystatin 500,000 UNITS/5 ML UDCUP SSW SCH (08:56)
[2022-05-24] MEDS: Lisinopril 20 MG TAB PO SCH (08:56)
[2022-05-24] MEDS: guaiFENesin ER 600 MG TAB PO SCH (08:56)
[2022-05-24] MEDS: Polyethylene Glycol 3350 17 GM Packet PER TUBE SCH (08:56)
[2022-05-24] MEDS: Spironolactone 25 MG TAB PO SCH (08:57)
[2022-05-24] MEDS: Lidocaine 5% Patch TD SCH (08:57)
[2022-05-24] MEDS: Lantus 1000 UNITS/10 ML VIAL SC SCH (08:58)
[2022-05-24] MEDS ORDERED: Amlodipine 10 MG TAB PO SCH (09:00)
[2022-05-24 10:26] VITALS: TEMP 98.6
[2022-05-24] MEDS: hydrALAZINE 20 MG/ML VIAL SLOW IVP PRN (11:04)
[2022-05-24 11:05] VITALS: BP 179/77
== END 2022-05-24 11:45 | DRG 871 ==
LOC: CSHERS 19:42 → CSHTELE 23:10 → CSHICU 05-06 01:07 → CSHTELE 05-06 16:23 → CSHICU 05-09 11:03 → CSHTELE 05-16 14:18
PROVIDERS: ADMIT Internal Medicine; ATTEND Family Medicine
PROC: 3E03329 Introduction of Other Anti-infective into Peripheral Vein, Percutaneous Approach (ICD-10-PCS; 2022-05-05)
PROC: 02HV33Z Insertion of Infusion Device into Superior Vena Cava, Percutaneous Approach (ICD-10-PCS; principal; 2022-05-09)
PROC: B548ZZA Ultrasonography of Superior Vena Cava, Guidance (ICD-10-PCS; 2022-05-09)
PROC: 5A1945Z Respiratory Ventilation, 24-96 Consecutive Hours (ICD-10-PCS; 2022-05-09)
PROC: 0BH17EZ Insertion of Endotracheal Airway into Trachea, Via Natural or Artificial Opening (ICD-10-PCS; 2022-05-09)
PROC: 30233N1 Transfusion of Nonautologous Red Blood Cells into Peripheral Vein, Percutaneous Approach (ICD-10-PCS; 2022-05-11)
PROC: 5A1945Z Respiratory Ventilation, 24-96 Consecutive Hours (ICD-10-PCS; 2022-05-12)
PROC: 5A09357 Assistance with Respiratory Ventilation, Less than 24 Consecutive Hours, Continuous Positive Airway Pressure (ICD-10-PCS; 2022-05-12)
PROC: 02HV33Z Insertion of Infusion Device into Superior Vena Cava, Percutaneous Approach (ICD-10-PCS; 2022-05-17)
DX: A41.01 Sepsis due to Methicillin susceptible Staphylococcus aureus (principal); I21.A1 Myocardial infarction type 2; J18.9 Pneumonia, unspecified organism; J96.01 Acute respiratory failure with hypoxia; R65.21 Severe sepsis with septic shock; J15.211 Pneumonia due to Methicillin susceptible Staphylococcus aureus; R57.1 Hypovolemic shock; N17.9 Acute kidney failure, unspecified; J44.0 Chronic obstructive pulmonary disease with (acute) lower respiratory infection; D62 Acute posthemorrhagic anemia; J44.1 Chronic obstructive pulmonary disease with (acute) exacerbation; I12.9 Hypertensive chronic kidney disease with stage 1 through stage 4 chronic kidney disease, or unspecified chronic kidney disease; E11.649 Type 2 diabetes mellitus with hypoglycemia without coma; E11.22 Type 2 diabetes mellitus with diabetic chronic kidney disease; E78.5 Hyperlipidemia, unspecified; F17.210 Nicotine dependence, cigarettes, uncomplicated; I16.0 Hypertensive urgency; E87.6 Hypokalemia; E78.00 Pure hypercholesterolemia, unspecified; F41.9 Anxiety disorder, unspecified; F32.A Depression, unspecified; E11.65 Type 2 diabetes mellitus with hyperglycemia; N18.32 Chronic kidney disease, stage 3b; D63.1 Anemia in chronic kidney disease; T50.905A Adverse effect of unspecified drugs, medicaments and biological substances, initial encounter; R53.81 Other malaise; I49.1 Atrial premature depolarization; I48.0 Paroxysmal atrial fibrillation; Z98.890 Other specified postprocedural states; Z79.899 Other long term (current) drug therapy; Z90.49 Acquired absence of other specified parts of digestive tract; Z98.51 Tubal ligation status; Z98.1 Arthrodesis status; Z82.49 Family history of ischemic heart disease and other diseases of the circulatory system; Z78.1 Physical restraint status; E86.0 Dehydration; I44.1 Atrioventricular block, second degree; Z87.440 Personal history of urinary (tract) infections
CPT/HCPCS: 36415; 36416; 36430; 36569; 36600; 51701; 71045; 71275; 74018; 74176; 74230; 80048; 80053; 81003; 81015; 82274; 82533; 82553; 82805; 83605; 83690; 83735; 83880; 84100; 84145; 84443; 84484; 85025; 86140; 86850; 86900; 86901; 87040; 87070; 87077; 87149; 87186; 87205; 87811; 93005; 93010; 93306; 93970; 94002; 94003; 94640; 94660; 94667; 94668; 94669; 94760; 94799; 96365; 96366; 96367; 96375; C1751; C9113; J0171; J0360; J0461; J0692; J1100; J1450; J1650; J1720; J1815; J1885; J1940; J2060; J2185; J2270; J2405; J2700; J2704; J2930; J3370; J3475; J3480; J3490; J7050; J7070; J7120; J7611; J7620; J7626; J7999; P9016; Q0162; Q9967

== ENCOUNTER 2022-06-20 19:05 | Inpatient (IN) | payer MEDICARE, OTHER ==
[~2022-06-20 19:05] MED LIST changes: +Iopamidol 300 61% 100 ML VIAL FS ONE; -Iopamidol 370 76% 100 ML VIAL ONE; -PROPOFOL 200 MG/20 ML VIAL ONE; -Succinylcholine 200 MG/10 ml SYRINGE FS ONE
[2022-06-20] MEDS ORDERED: Morphine 4 MG/ML VIAL ONE (19:35)
[2022-06-20] MEDS ORDERED: Ondansetron PF 4 MG/2 ML Vial ONE (19:35)
[2022-06-20 19:48] LABS: #Monocytes 0.8 10x3/uL (0.0-1.1); #Neutrophils 8.8 10x3/uL (1.5-8.4); %Basophils 0.3 % (0.0-2.0); %Lymphocytes 18.6 % (18.0-47.0); %Monocytes 6.7 % (0.0-10.0); %Neutrophils 74.1 % (40.0-75.0); Hemoglobin 11.3 g/dL (12.0-15.5); Mean Corpuscular HGB CONC 35.1 g/dL (32.0-36.0); Mean Corpuscular Hemoglobin 30.7 pg (27.0-33.0); Mean Corpuscular Volume 87.5 fl (81.6-98.3); Platelet Count 361 10x3/uL (150-450); RBC Distribution Width 14.6 % (11.5-14.5); Red Blood Cell (RBC) Count 3.68 10x6/uL (3.90-5.03); White Blood Cell (WBC) Count 11.9 10x3/uL (3.5-10.5)
[2022-06-20 20:00] LABS: ALT (SGPT) 6 U/L (8-55); AST (SGOT) 12 U/L (5-34); Albumin 3.7 g/dL (3.4-4.8); Alkaline Phosphatase 71 U/L (40-110); Anion Gap 15 mmol/L (10-20); BUN (Urea Nitrogen) 17 mg/dL (9.8-20.1); Bilirubin, Total 0.4 mg/dL (0.2-1.2); Calc. Creatinine Clearance 0 mL/min (70-130); Calcium 8.7 mg/dL (7.8-10.44); Carbon Dioxide 16 mmol/L (23-31); Chloride 107 mmol/L (98-107); Estimated GFR 82; Globulin 3.3 g/dL (2.4-3.5); Glucose 135 mg/dL (83-110); Lipase 27 U/L (8-78); Magnesium 1.5 mg/dL (1.6-2.6); Potassium 3.8 mmol/L (3.5-5.1); Sodium 134 mmol/L (136-145)
[2022-06-20] MEDS ORDERED: cloNIDine 0.1 MG TAB ONE (20:12)
[2022-06-20 20:22] LABS: CKMB 1.4 ng/mL (0-6.6)
[2022-06-20] MEDS ORDERED: Piperacillin/Tazobactam 3.375 GM VIAL ONE (21:41)
[2022-06-20 22:01] LABS: Bilirubin Neg (Negative); Blood, Urine 150 (Negative); Clarity Cloudy (Clear); Glucose, Urine (Dipstick) Normal (Negative); Ketone, Urine Negative (Negative); Leukocyte 500 (Negative); Nitrite Positive (Negative); Protein, Urine (Dipstick) 30 mg/dl (Neg-Trace); Specific Gravity, Urine 1.015 (1.005-1.030); Urobilinogen Normal mg/dL (Less than 2)
[2022-06-20 22:11] LABS: Bacteria/HPF 3+ HPF (None Seen); Renal Epithelial 0-3 HPF (None Seen); Squamous Epithelial 0-3 HPF (0-3); Transitional Epithelial 0-3 HPF (None Seen); WBC/HPF Greater than 50 HPF (0-3); Yeast-Budding 1+ HPF (None Seen)
[2022-06-21] MEDS ORDERED: Ondansetron ODT 4 MG TAB PO PRN (01:20)
[2022-06-21] MEDS ORDERED: Ondansetron PF 4 MG/2 ML Vial IVP PRN (01:20)
[2022-06-21] MEDS ORDERED: Ipratropium/Albuterol 3 ML NEB NEB PRN (01:26)
[2022-06-21] MEDS ORDERED: Sodium Chloride 0.9% 1,000 ML IV SCH (01:30)
[2022-06-21] MEDS ORDERED: Morphine 2 MG/ML VIAL ONE ×2 (01:37→12:01)
[2022-06-21] MEDS: Morphine 2 MG/ML VIAL SLOW IVP PRN ×3 (01:42→20:40)
[2022-06-21] MEDS ORDERED: Magnesium 2 GM/50 ML(in water) 2 GM in Premix Bag 1 BAG IVPB SCH (01:45)
[2022-06-21] MEDS ORDERED: Magnesium 2 GM/50 ML BAG (IN WATER) ONE (01:51)
[2022-06-21] MEDS: Enalaprilat Dihydrate 1.25 MG/ML VIAL SLOW IVP SCH ×2 (03:14→16:52)
[2022-06-21 03:15] LABS: #Monocytes 0.7 10x3/uL (0.0-1.1); #Neutrophils 5.9 10x3/uL (1.5-8.4); %Basophils 0.3 % (0.0-2.0); %Lymphocytes 26.1 % (18.0-47.0); %Monocytes 7.3 % (0.0-10.0); Hemoglobin 9.5 g/dL (12.0-15.5); Mean Corpuscular HGB CONC 34.5 g/dL (32.0-36.0); Mean Corpuscular Hemoglobin 30.4 pg (27.0-33.0); Mean Corpuscular Volume 88.1 fl (81.6-98.3); Platelet Count 276 10x3/uL (150-450); RBC Distribution Width 14.6 % (11.5-14.5); Red Blood Cell (RBC) Count 3.12 10x6/uL (3.90-5.03)
[2022-06-21 03:38] LABS: Troponin I 0.066 ng/mL (< 0.028)
[2022-06-21 03:43] LABS: ALT (SGPT) Less than 6 U/L (8-55); AST (SGOT) 10 U/L (5-34); Albumin 3.2 g/dL (3.4-4.8); Alkaline Phosphatase 64 U/L (40-110); Anion Gap 15 mmol/L (10-20); BUN (Urea Nitrogen) 14 mg/dL (9.8-20.1); Bilirubin, Total 0.4 mg/dL (0.2-1.2); Calc. Creatinine Clearance 0 mL/min (70-130); Calcium 8.1 mg/dL (7.8-10.44); Carbon Dioxide 14 mmol/L (23-31); Chloride 111 mmol/L (98-107); Estimated GFR 91; Globulin 2.6 g/dL (2.4-3.5); Glucose 92 mg/dL (83-110); Magnesium 2.5 mg/dL (1.6-2.6); Potassium 3.7 mmol/L (3.5-5.1); Protein, Total 5.8 g/dL (5.8-8.1); Sodium 136 mmol/L (136-145)
[2022-06-21] MEDS ORDERED: Metoprolol Tartrate 5 MG/5 ML VIAL ONE ×2 (04:07→11:51)
[2022-06-21] MEDS: Metoprolol Tartrate 5 MG/5 ML VIAL IVP SCH ×3 (04:08→20:21)
[2022-06-21] MEDS ORDERED: Piperacillin/Tazobactam 3.375 GM VIAL ONE (05:37)
[2022-06-21] MEDS: Piperacillin/Tazobactam 3.375 GM in Sodium Chloride 0.9% 100 ML IVPB SCH ×3 (05:48→22:34)
[2022-06-21] MEDS: 1/2 NS w/KCL 20 mEq 1,000 ML IV SCH ×3 (05:48→20:21)
[2022-06-21] MEDS ORDERED: Mometasone 100 MCG/PUFF (1 INHALER) INH SCH (06:30)
[2022-06-21] MEDS: Mometasone/Formoterol 60 PUFF AER INH SCH ×2 (06:30→19:44)
[2022-06-21] MEDS ORDERED: Budesonide 0.5 MG/2 ML NEB NEB SCH (06:30)
[2022-06-21] MEDS ORDERED: Arformoterol 15 MCG/2 ML NEB NEB SCH (06:30)
[2022-06-21] MEDS ORDERED: Budesonide 0.5 MG/2 ML NEB ONE (06:32)
[2022-06-21] MEDS ORDERED: Ipratropium/Albuterol 3 ML NEB ONE (06:33)
[2022-06-21 06:40] LABS: SARS-CoV-2 NAA Rapid Test DETECTED (NotDetected)
[2022-06-21] MEDS ORDERED: Ventolin HFA Inhaler 60 PUFF INHALER INH PRN (06:54)
[2022-06-21] MEDS ORDERED: Pantoprazole 40 MG VIAL ONE (09:38)
[2022-06-21] MEDS: Pantoprazole 40 MG VIAL IVP SCH (09:50)
[2022-06-22 00:44] VITALS: BMI 20.4
[2022-06-22] MEDS: Morphine 2 MG/ML VIAL SLOW IVP PRN ×3 (01:27→21:47)
[2022-06-22] MEDS: Enalaprilat Dihydrate 1.25 MG/ML VIAL SLOW IVP SCH ×2 (03:56→15:51)
[2022-06-22] MEDS: Metoprolol Tartrate 5 MG/5 ML VIAL IVP SCH ×2 (03:57→12:57)
[2022-06-22 04:42] LABS: Anion Gap 14 mmol/L (10-20); BUN (Urea Nitrogen) 16 mg/dL (9.8-20.1); Calc. Creatinine Clearance 55 mL/min (70-130); Calcium 8.2 mg/dL (7.8-10.44); Carbon Dioxide 12 mmol/L (23-31); Chloride 111 mmol/L (98-107); Estimated GFR 82; Glucose 174 mg/dL (83-110); Potassium 3.4 mmol/L (3.5-5.1); Sodium 134 mmol/L (136-145)
[2022-06-22 04:51] LABS: Troponin I 0.037 ng/mL (< 0.028)
[2022-06-22 04:54] LABS: #Basophils 0.1 10x3/uL (0.0-0.2); #Monocytes 0.7 10x3/uL (0.0-1.1); #Neutrophils 8.7 10x3/uL (1.5-8.4); %Basophils 0.4 % (0.0-2.0); %Lymphocytes 20.2 % (18.0-47.0); %Monocytes 6.1 % (0.0-10.0); Hemoglobin 10.5 g/dL (12.0-15.5); Mean Corpuscular HGB CONC 34.7 g/dL (32.0-36.0); Mean Corpuscular Hemoglobin 30.8 pg (27.0-33.0); Mean Corpuscular Volume 88.9 fl (81.6-98.3); Mean Platelet Volume 9.4 fl (7.4-10.4); Platelet Count 288 10x3/uL (150-450); RBC Distribution Width 14.7 % (11.5-14.5); Red Blood Cell (RBC) Count 3.41 10x6/uL (3.90-5.03); White Blood Cell (WBC) Count 11.9 10x3/uL (3.5-10.5)
[2022-06-22] MEDS: Piperacillin/Tazobactam 3.375 GM in Sodium Chloride 0.9% 100 ML IVPB SCH ×2 (06:52→14:51)
[2022-06-22] MEDS: Mometasone/Formoterol 60 PUFF AER INH SCH ×2 (07:45→19:48)
[2022-06-22] MEDS: Pantoprazole 40 MG VIAL IVP SCH (08:27)
[2022-06-22] MEDS: 1/2 NS w/KCL 20 mEq 1,000 ML IV SCH ×2 (08:59→12:58)
[2022-06-22] MEDS ORDERED: Electrolyte Replacement Protocol 1 EACH FS SCH (16:45)
[2022-06-22] MEDS ORDERED: Permethrin 5% Cream 60 GM TUBE TOP SCH (20:00)
[2022-06-22] MEDS ORDERED: Atorvastatin Calcium 40 MG TAB PO SCH (21:00)
[2022-06-22] MEDS: Lisinopril 20 MG TAB PO SCH (21:01)
[2022-06-23] MEDS: Morphine 2 MG/ML VIAL SLOW IVP PRN (01:56)
[2022-06-23 06:29] LABS: Magnesium 1.6 mg/dL (1.6-2.6); Phosphorus 2.6 mg/dL (2.3-4.7)
[2022-06-23] MEDS: Mometasone/Formoterol 60 PUFF AER INH SCH (07:30)
[2022-06-23 08:09] LABS: Anion Gap 13 mmol/L (10-20); BUN (Urea Nitrogen) 13 mg/dL (9.8-20.1); Calc. Creatinine Clearance 65 mL/min (70-130); Calcium 8.3 mg/dL (7.8-10.44); Carbon Dioxide 14 mmol/L (23-31); Estimated GFR 92; Glucose 88 mg/dL (83-110); Potassium 3.9 mmol/L (3.5-5.1); Sodium 138 mmol/L (136-145)
[2022-06-23 08:35] LABS: Chloride 115 mmol/L (98-107)
[2022-06-23] MEDS ORDERED: Magnesium 2 GM/50 ML(in water) 2 GM in Premix Bag 1 BAG IVPB SCH (09:00)
[2022-06-23] MEDS ORDERED: Amlodipine 5 MG TAB PO SCH (09:00)
[2022-06-23] MEDS ORDERED: Ascorbic Acid 500 mg Chewable Tablet PO SCH (09:00)
[2022-06-23] MEDS ORDERED: Zinc Sulfate 220 MG CAP PO SCH (09:00)
[2022-06-23] MEDS: Lisinopril 20 MG TAB PO SCH (09:26)
[2022-06-23] MEDS ORDERED: Magnesium 2 GM/50 ML BAG (IN WATER) ONE (09:29)
[2022-06-23 16:15] VITALS: BP 136/78; TEMP 98.4
== END 2022-06-23 16:15 | disposition home or self-care (01) | DRG 178 ==
LOC: CSHERS 19:05 → CSHERHOLD 21:20 → CSHTELE 06-21 15:11
PROVIDERS: ADMIT Family Medicine; ATTEND Family Medicine
PROC: 8E0ZXY6 Isolation (ICD-10-PCS; principal; 2022-06-20)
DX: U07.1 COVID-19 (principal); J96.10 Chronic respiratory failure, unspecified whether with hypoxia or hypercapnia; N39.0 Urinary tract infection, site not specified; J44.9 Chronic obstructive pulmonary disease, unspecified; F17.210 Nicotine dependence, cigarettes, uncomplicated; I44.1 Atrioventricular block, second degree; E11.9 Type 2 diabetes mellitus without complications; I48.0 Paroxysmal atrial fibrillation; R62.7 Adult failure to thrive; I10 Essential (primary) hypertension; E83.42 Hypomagnesemia; R77.8 Other specified abnormalities of plasma proteins; E78.00 Pure hypercholesterolemia, unspecified; K83.8 Other specified diseases of biliary tract; B85.2 Pediculosis, unspecified; Z90.49 Acquired absence of other specified parts of digestive tract; Z95.0 Presence of cardiac pacemaker; Z98.51 Tubal ligation status; Z79.899 Other long term (current) drug therapy; Z79.4 Long term (current) use of insulin; Z87.09 Personal history of other diseases of the respiratory system; Z98.1 Arthrodesis status; Z98.890 Other specified postprocedural states; Z82.49 Family history of ischemic heart disease and other diseases of the circulatory system
CPT/HCPCS: 36415; 36416; 71045; 74177; 76705; 80048; 80053; 81003; 81015; 82553; 83605; 83690; 83735; 84100; 84484; 85025; 93005; 93010; 94640; 94664; 94760; 96361; 96374; 96375; C9113; J1650; J2270; J2272; J2405; J2543; J3475; J3480; J3490; J7050; J7620; J7626; Q9967; U0002